=== PATIENT | female | born 1945 | race Hispanic/Latino ===

== ENCOUNTER 2018-11-15 21:16 | Inpatient (IN) | payer OTHER ==
[2018-11-15] MEDS ORDERED: ACETAMINOPHEN 500 MG TAB ONE (22:11)
[2018-11-15] MEDS ORDERED: ONDANSETRON 4 MG/2 ML VIAL ONE (22:11)
[2018-11-15 22:23] LABS: Absolute Lymphocytes (CBC) 0.7 K/uL (0.7-4.9); Basophils % 0.2 % (0-1.3); Hematocrit 40.7 % (36.0-45.0); Lymphocytes % 4.4 % (15.3-44.8); RBC Red Blood Cell Count 4.35 M/uL (3.86-4.86)
[2018-11-15 22:40] LABS: Albumin 3.3 g/dL (3.4-5.0); Bilirubin Direct 0.4 mg/dL (0-0.2); Potassium 3.8 mmol/L (3.5-5.1); Protein, Total 7.8 g/dL (6.4-8.2)
[2018-11-15 23:35] LABS: Blood Morphology Comment NOT SEEN (NOT SEEN); Platelet Estimate ADEQ
[2018-11-15] MEDS ORDERED: NA CHLORIDE 0.9% 1,000 ML ONE (23:46)
[2018-11-16 02:03] LABS: Potassium 3.9 mmol/L (3.5-5.1)
[2018-11-16] MEDS ORDERED: ONDANSETRON 4 MG/2 ML VIAL ONE (02:03)
[2018-11-16] MEDS ORDERED: ACETAMINOPHEN 500 MG TAB ONE (02:06)
[2018-11-16] MEDS ORDERED: ONDANSETRON 4 MG/2 ML VIAL IV PRN (04:20)
--- NOTE | 2018-11-16 04:21 | EDPHYS ---
Physician Documentation [facility] Name: Kim Bean Age: 73 yrs Sex: Female : 1945 Arrival Date: 11/15/2018 Time: 21:19 Bed 20 Private MD: ED Physician Josue Washington HPI: 11/16 02:41 This 73 yrs old Female presents to ER via Wheelchair with complaints of Nausea.tw4 02:41 The patient presents to the emergency department with nausea, that is mild, vomiting. tw4 Onset: The symptoms/episode began/occurred yesterday. 02:42 Possible causes: unknown. The symptoms are aggravated by food , The symptoms are tw4 alleviated by nothing. Associated signs and symptoms: The patient has no apparent associated signs or symptoms. Severity of symptoms: At their worst the symptoms were moderate in the emergency department the symptoms are unchanged. The patient has not experienced similar symptoms in the past. Historical: - Allergies: 11/15 21:38 PENICILLINS; jd3 - Home Meds: 21:38 Omeprazole Oral [Active]; jd3 - PMHx: 21:38 acid reflux; jd3 - PSHx: 21:38 Hysterectomy; Cholecystectomy; jd3 - Immunization history:: Adult Immunizations up to date. - Social history:: Smoking status: Patient/guardian denies using tobacco. - Ebola Screening: : Patient negative for fever greater than or equal to 101.5 degrees Fahrenheit, and additional compatible Ebola Virus Disease symptoms. ROS: 11/16 02:42 Eyes: Negative for injury, pain, redness, and discharge, ENT: Negative for injury, tw4 pain, and discharge, Neck: Negative for injury, pain, and swelling, Cardiovascular: Negative for chest pain, palpitations, and edema, Respiratory: Negative for shortness of breath, cough, wheezing, and pleuritic chest pain, MS/Extremity: Negative for injury and deformity, Skin: Negative for injury, rash, and discoloration, Neuro: Negative for headache, weakness, numbness, tingling, and seizure. Constitutional: Positive for fatigue, fever, malaise, poor PO intake. Abdomen/GI: Positive for nausea and vomiting, nausea, vomiting, Negative for abdominal pain. Exam: 02:42 Constitutional: This is a well developed, well nourished patient who is awake, alert, tw4 and in no acute distress. Head/Face: Normocephalic, atraumatic. Chest/axilla: Normal chest wall appearance and motion. Nontender with no deformity. No lesions are appreciated. Cardiovascular: Regular rate and rhythm with a normal S1 and S2. No gallops, murmurs, or rubs. Normal PMI, no JVD. No pulse deficits. Respiratory: Lungs have equal breath sounds bilaterally, clear to auscultation and percussion. No rales, rhonchi or wheezes noted. No increased work of breathing, no retractions or nasal flaring. Back: No spinal tenderness. No costovertebral tenderness. Full range of motion. Skin: Warm, dry with normal turgor. Normal color with no rashes, no lesions, and no evidence of cellulitis. MS/ Extremity: Pulses equal, no cyanosis. Neurovascular intact. Full, normal range of motion. Neuro: Awake and alert, GCS 15, oriented to person, place, time, and situation. Cranial nerves II-XII grossly intact. Motor strength 5/5 in all extremities. Sensory grossly intact. Cerebellar exam normal. Normal gait. Vital Signs: 11/15 21:38 BP 147 / 71; Pulse 103; Resp 20 S; Temp 101.9(O); Pulse Ox 99% on R/A; Weight 88 kg j (R); Height 5 ft. 2 in. (157.48 cm) (R); Pain 8/10; 22:35 BP 121 / 54; Pulse 97; Resp 18 S; Pulse Ox 95% on R/A; jd3 23:42 BP 115 / 56; Pulse 88; Resp 17 S; Pulse Ox 94% on R/A; jd3 11/16 00:05 Temp 99.6(O); jd3 00:21 BP 102 / 87; Pulse 89; Resp 17 S; Pulse Ox 99% on R/A; jd3 01:26 BP 131 / 60; Pulse 81; Resp 17 S; Pulse Ox 94% on R/A; jd3 02:11 BP 123 / 72; Pulse 82; Resp 17 S; Pulse Ox 93% on R/A; jd3 03:07 BP 137 / 96; Pulse 76; Resp 17 S; Pulse Ox 94% on R/A; jd3 04:04 BP 111 / 53; Pulse 77; Resp 18 S; Pulse Ox 95% on R/A; jd3 04:55 BP 101 / 82; Pulse 75; Resp 17 S; Pulse Ox 97% on R/A; jd3 05:01 Temp 98.2(O); jd3 11/15 21:38 Body Mass Index 35.48 (88.00 kg, 157.48 cm) jd3 MDM: 11/15 21:26 Patient medically screened. 4 11/16 05:01 Differential diagnosis: Nonspecific abd pain, gastritis, cholecystitis. Data reviewed: tw4 vital signs, nurses notes. Data reviewed: lab test result(s), CBC, white blood cell count, hemoglobin, hematocrit, platelets, electrolytes, sodium, potassium, chloride, serum bicarbonate, BUN, creatinine, serum glucose, hepatic panel. Data interpreted: Pulse oximetry: Interpretation: normal. Test interpretation: by ED physician or midlevel provider: labs. Counseling: I had a detailed discussion with the patient and/or guardian regarding: the historical points, exam findings, and any diagnostic results supporting the discharge/admit diagnosis, lab results, radiology results. Medication response: acetaminophen administration has normalized the patient's temperature. Response to treatment: and as a result, I will admit patient. Physician consultation: Mary Beth Lemon MD was contacted at 04:00, regarding admission, to the medical/surgical unit. patient's condition, need to evaluate the patient as soon as possible, and will see patient in inpatient room. 11/15 21:27 Order name: Basic Metabolic Panel; Complete Time: 23:22 11/15 23:23 Interpretation: Normal except: GFR 35; CRE 1.45; BUN 19; GLUC 177; CL 108. tw4 11/15 21:27 Order name: CBC with Diff; Complete Time: 00:41 4 11/15 23:24 Interpretation: Normal except: WBC 15.1; LANETTE% 86.7; LYM% 4.4. 4 11/15 21:27 Order name: Creatinine for Radiology; Complete Time: 23:22 tw4 11/15 23:23 Interpretation: Normal except: CRE 1.41; GFR 36. tw4 11/15 21:27 Order name: Hepatic Function; Complete Time: 23:22 tw 11/15 23:23 Interpretation: Normal except: BILID 0.4; ALB 3.3; GLOB 4.5; A/G 0.7. [facility] 11/15 21:27 Order name: Lipase; Complete Time: 23:22 [facility] 11/15 23:24 Interpretation: Within normal limits: LIP 107. [facility] 11/15 22:26 Order name: Manual Differential; Complete Time: 00:41 [facility] 11/16 00:41 Interpretation: Normal except: BANDS [F] 5; LYM 3. [facility] 11/15 23:32 Order name: Flu; Complete Time: 02:04 [facility] 11/16 01:09 Order name: BMP; Complete Time: 02:04 [facility] 11/16 04:22 Order name: Urine Microscopic Only [facility] 11/16 04:22 Order name: Lactate [facility] 11/16 04:22 Order name: Blood Culture Adult (2) [facility] 11/16 04:23 Order name: Urine Microscopic Only [facility] 11/16 04:29 Order name: CBC with Automated Diff [facility] 11/16 04:29 Order name: CBC with Automated Diff [facility] 11/15 21:27 Order name: IV Saline Lock; Complete Time: 22:12 [facility] 11/15 21:27 Order name: Labs collected and sent; Complete Time: 22:12 [facility] 11/16 01:09 Order name: CT Abd/Pelvis - IV Contrast Only [facility] 11/16 04:22 Order name: Urine Dipstick-Ancillary (obtain specimen); Complete Time: 05:35 [facility] 11/16 04:29 Order name: CONS Pharmacy Consult [facility] 11/16 04:29 Order name: NPO [facility] 11/16 04:29 Order name: Protime (+INR) [facility] 11/16 04:29 Order name: Protime (+INR) [facility] 11/16 05:37 Order name: Urine Dipstick--Ancillary (enter results) em1 11/16 05:48 Order name: Urine Dipstick-Ancillary EDKS Administered Medications: 11/15 22:17 Drug: Zofran 4 mg Route: IVP; Site: right antecubital; jd3 23:15 Follow up: Response: No adverse reaction jd3 22:17 Drug: Tylenol 1000 mg Route: PO; jd3 23:15 Follow up: Response: No adverse reaction; Temperature is decreased jd3 11/16 00:05 Drug: NS 0.9% 1000 ml Route: IV; Rate: 1 bolus; Site: right antecubital; jd3 01:05 Follow up: Response: No adverse reaction; IV Status: Completed infusion; IV Intake: jd3 1000ml 02:10 Drug: Tylenol 1000 mg Route: PO; jd3 03:10 Follow up: Response: No adverse reaction jd3 04:51 Drug: Motrin 600 mg Route: PO; jd3 05:45 Follow up: Response: No adverse reaction jd3 05:50 Not Given (Patient Refused): Zofran 4 mg IVP once; over 2 minutes jd3 Disposition: 11/16/18 04:20 Hospitalization ordered by Mary Beth Lemon for Observation. Preliminary diagnosis are Dehydration, Nausea and vomiting, Bandemia. - Bed requested for Telemetry/MedSurg (observation). - Status is Observation. jd3 - Condition is Fair. - Problem is new. - Symptoms are unchanged. UTI on Admission? No Signatures: Dispatcher [employer] Sosa Cox RN RN cg Davies, Jonathon, RN RN jd3 Wadley, Terrence, MD MD tw4 Corrections: (The following items were deleted from the chart) 05:16 04:20 Hospitalization Ordered by Mary Beth Lemon MD for Observation. Preliminary cg diagnosis is Dehydration; Nausea and vomiting; Bandemia. Bed requested for Telemetry/MedSurg (observation). Status is Observation. Condition is Fair. Problem is new. Symptoms are unchanged. UTI on Admission? No. tw4 05:51 05:16 11/16/2018 04:20 Hospitalization Ordered by Mary Beth Lemon MD for Observation. jd3 Preliminary diagnosis is Dehydration; Nausea and vomiting; Bandemia. Bed requested for Telemetry/MedSurg (observation). Status is Observation. Condition is Fair. Problem is new. Symptoms are unchanged. UTI on Admission? No. cg
--- NOTE | 2018-11-16 04:21 | ER ---
Nurse's Notes [facility] Name: Kim Bean Age: 73 yrs Sex: Female : 1945 Arrival Date: 11/15/2018 Time: 21:19 Bed 20 Private MD: Diagnosis: Dehydration;Nausea and vomiting;Bandemia Presentation: 11/15 21:33 Presenting complaint: Patient states: "I was at Dr. Shin's office today and I was told jdarius I had the flu with a fever and nausea. I was sent home with TheraFlu and a Z-pack. I have not been able to hold down any of the medication or medicine for the fever.". Transition of care: patient was not received from another setting of care. Onset of symptoms was November 15, 2018. Risk Assessment: Do you want to hurt yourself or someone else? Patient reports no desire to harm self or others. Initial Sepsis Screen: Does the patient meet any 2 criteria? Temp <36.0*C (96.8*F)) or > 38.3*C (100.9*F). HR > 90 bpm. Yes Does the patient have a suspected source of infection? No. Patient's initial sepsis screen is negative. Care prior to arrival: None. 21:33 Method Of Arrival: Wheelchair jd3 21:33 Acuity: KENNY 3 jd3 Historical: - Allergies: 21:38 PENICILLINS; jd3 - Home Meds: 21:38 Omeprazole Oral [Active]; jd3 - PMHx: 21:38 acid reflux; jd3 - PSHx: 21:38 Hysterectomy; Cholecystectomy; jd3 - Immunization history:: Adult Immunizations up to date. - Social history:: Smoking status: Patient/guardian denies using tobacco. - Ebola Screening: : Patient negative for fever greater than or equal to 101.5 degrees Fahrenheit, and additional compatible Ebola Virus Disease symptoms. Screenin:41 Abuse screen: Denies threats or abuse. Nutritional screening: No deficits noted. jd3 Tuberculosis screening: No symptoms or risk factors identified. Fall Risk Ambulatory Aid- None/Bed Rest/Nurse Assist (0 pts). Gait- Normal/Bed Rest/Wheelchair (0 pts) Mental Status- Oriented to own ability (0 pts). Total Howe Fall Scale indicates No Risk (0-24 pts). Assessment: 21:39 General: Appears in no apparent distress. uncomfortable, Behavior is calm, cooperative, jd3 appropriate for age. Pain: Complains of pain in head and abdomen Quality of pain is described as aching. Neuro: Level of Consciousness is awake, alert, obeys commands, Oriented to person, place, time, situation. Cardiovascular: Denies chest pain, Capillary refill < 3 seconds Patient's skin is warm and dry. Respiratory: Airway is patent Respiratory effort is even, unlabored, Respiratory pattern is regular, symmetrical, Denies cough, shortness of breath. GI: Abdomen is round non-distended, Reports lower abdominal pain, upper abdominal pain, nausea. : No signs and/or symptoms were reported regarding the genitourinary system. EENT: No signs and/or symptoms were reported regarding the EENT system. Derm: Skin is intact, Skin is dry, Skin is normal, Skin temperature is warm. Musculoskeletal: Circulation, motion, and sensation intact. Range of motion: intact in all extremities. 22:35 Reassessment: Patient appears in no apparent distress at this time. No changes from jd3 previously documented assessment. Patient and/or family updated on plan of care and expected duration. Pain level reassessed. Patient is alert, oriented x 3, equal unlabored respirations, skin warm/dry/pink. 23:42 Reassessment: Patient appears in no apparent distress at this time. No changes from jd3 previously documented assessment. Patient and/or family updated on plan of care and expected duration. Pain level reassessed. Patient is alert, oriented x 3, equal unlabored respirations, skin warm/dry/pink. 11/16 00:23 Reassessment: Patient appears in no apparent distress at this time. Patient and/or jd3 family updated on plan of care and expected duration. Pain level reassessed. Patient is alert, oriented x 3, equal unlabored respirations, skin warm/dry/pink. pt reported relief from the nausea, but continued headache. Patient states feeling better. 01:27 Reassessment: Patient appears in no apparent distress at this time. Patient and/or jd3 family updated on plan of care and expected duration. Pain level reassessed. Patient is alert, oriented x 3, equal unlabored respirations, skin warm/dry/pink. awaiting CT. 02:10 Reassessment: Patient appears in no apparent distress at this time. Patient and/or jd3 family updated on plan of care and expected duration. Pain level reassessed. Patient is alert, oriented x 3, equal unlabored respirations, skin warm/dry/pink. pt reported continuing headache. provider notified. new orders received. Zofran on hold, pt denies nausea at this time. 03:07 Reassessment: Patient appears in no apparent distress at this time. Patient and/or jd3 family updated on plan of care and expected duration. Pain level reassessed. Patient is alert, oriented x 3, equal unlabored respirations, skin warm/dry/pink. awaiting CT results. 04:03 Reassessment: Patient appears in no apparent distress at this time. Patient and/or jd3 family updated on plan of care and expected duration. Pain level reassessed. Patient is alert, oriented x 3, equal unlabored respirations, skin warm/dry/pink. provider at bedside. pt resting comfortably in bed. awaiting disposition. 05:11 Reassessment: Patient appears in no apparent distress at this time. Patient and/or jd3 family updated on plan of care and expected duration. Pain level reassessed. Patient is alert, oriented x 3, equal unlabored respirations, skin warm/dry/pink. awaiting room assignment. 05:43 Reassessment: Patient appears in no apparent distress at this time. Patient and/or jd3 family updated on plan of care and expected duration. Pain level reassessed. Patient is alert, oriented x 3, equal unlabored respirations, skin warm/dry/pink. report given Nicola DU. Vital Signs: 11/15 21:38 BP 147 / 71; Pulse 103; Resp 20 S; Temp 101.9(O); Pulse Ox 99% on R/A; Weight 88 kg [facility] (R); Height 5 ft. 2 in. (157.48 cm) (R); Pain 8/10; 22:35 BP 121 / 54; Pulse 97; Resp 18 S; Pulse Ox 95% on R/A; jd3 23:42 BP 115 / 56; Pulse 88; Resp 17 S; Pulse Ox 94% on R/A; d3 11/16 00:05 Temp 99.6(O); jd3 00:21 BP 102 / 87; Pulse 89; Resp 17 S; Pulse Ox 99% on R/A; jd3 01:26 BP 131 / 60; Pulse 81; Resp 17 S; Pulse Ox 94% on R/A; jd3 02:11 BP 123 / 72; Pulse 82; Resp 17 S; Pulse Ox 93% on R/A; jd3 03:07 BP 137 / 96; Pulse 76; Resp 17 S; Pulse Ox 94% on R/A; jd3 04:04 BP 111 / 53; Pulse 77; Resp 18 S; Pulse Ox 95% on R/A; jd3 04:55 BP 101 / 82; Pulse 75; Resp 17 S; Pulse Ox 97% on R/A; jd3 05:01 Temp 98.2(O); jd3 11/15 21:38 Body Mass Index 35.48 (88.00 kg, 157.48 cm) jd3 ED Course: 11/15 21:19 Patient arrived in ED. cf2 21:23 Josue Washington MD is Attending Physician. tw4 21:33 Santosh Peraza RN is Primary Nurse. jd3 21:37 Triage completed. jd3 21:39 Arm band placed on. jd3 21:41 Patient has correct armband on for positive identification. Bed in low position. Call j light in reach. Side rails up X2. Adult w/ patient. 22:12 Adult fever workup initiated per nursing protocol. jd3 11/16 02:24 CT Abd/Pelvis - IV Contrast Only In Process Unspecified. EDMS 02:37 CT completed. Patient tolerated procedure well. Patient moved to CT via wheelchair. Patient moved back from CT. 04:17 Mary Beth Lemon MD is Hospitalizing Provider. tw4 05:44 No provider procedures requiring assistance completed. Patient admitted, IV remains in jd3 place. Administered Medications: 11/15 22:17 Drug: Zofran 4 mg Route: IVP; Site: right antecubital; jd3 23:15 Follow up: Response: No adverse reaction jd3 22:17 Drug: Tylenol 1000 mg Route: PO; jd3 23:15 Follow up: Response: No adverse reaction; Temperature is decreased jd3 11/16 00:05 Drug: NS 0.9% 1000 ml Route: IV; Rate: 1 bolus; Site: right antecubital; jd3 01:05 Follow up: Response: No adverse reaction; IV Status: Completed infusion; IV Intake: jd3 1000ml 02:10 Drug: Tylenol 1000 mg Route: PO; jd3 03:10 Follow up: Response: No adverse reaction jd3 04:51 Drug: Motrin 600 mg Route: PO; jd3 05:45 Follow up: Response: No adverse reaction jd3 05:50 Not Given (Patient Refused): Zofran 4 mg IVP once; over 2 minutes jd3 Intake: 01:05 IV: 1000ml; Total: 1000ml. jd3 Outcome: 04:20 Decision to Hospitalize by Provider. tw4 05:44 Admitted to Med/surg accompanied by nurse, via wheelchair, room 208, with chart, Report jd3 called to Nicola DU 05:44 Condition: stable 05:44 Instructed on the need for admit, Demonstrated understanding of instructions. 05:51 Patient left the ED. jd3 Signatures: Dispatcher [employer] Colton Lugo Jonathon, RN RN jJosue Grier MD MD tw4 Sanya Max cf2 Corrections: (The following items were deleted from the chart) 00:23 09/10 21:39 Pain: Complains of pain in abdomen Quality of pain is described as aching, devan jdarius 11/16 02:12 02:11 BP 112 / 47; Pulse 82bpm; Resp 17bpm; Spontaneous; Pulse Ox 93% RA; jd3 jd3
[2018-11-16] MEDS ORDERED: IBUPROFEN 400 MG TAB ONE (04:48)
[2018-11-16] MEDS ORDERED: IBUPROFEN 200 MG TAB PO ONE (04:48)
[2018-11-16] MEDS: NA CHLORIDE 0.9% 1,000 ML IV SCH ×4 (05:00→17:03)
[2018-11-16 05:47] LABS: Urine Blood 2+ (NEG); Urine Glucose NEGATIVE (NEG); Urine Protein 2+ (NEG); Urine pH 5.5 (5.0-7.0)
[2018-11-16 05:50] LABS: Urine Bacteria >50 /HPF (<20); Urine Culture Reflex Order REFLEXED; Urine RBC <5 /HPF (NONE SEEN)
[2018-11-16] MEDS: PANTOPRAZOLE 40MG TABLET PO SCH (09:00)
[2018-11-16] MEDS: SUCRALFATE 1 GM TABLET PO SCH ×4 (09:00→21:19)
--- NOTE | 2018-11-16 09:01 | P.HP ---
Certification for Inpatient Patient admitted to: Observation With expected LOS: <2 Midnights Patient will require the following post-hospital care: None Practitioner: I am a practitioner with admitting privileges, knowledge of patient current condition, hospital course, and medical plan of care. Services: Services provided to patient in accordance with Admission requirements found in Title 42 Section 412.3 of the Code of Federal Regulations Patient History Date of Service: 11/16/18 Reason for admission: Fever, shakes, and chills /nausea /generalized weakness History of Present Illness: Patient is a 73yo female who has a history of scleroderma that was recently diagnosed a few weeks ago. Patient went to her primary care provider's office and was told that she had the flu. She states that they did not do a flu swab. She was sent home on therapy flu and also given a Z-Jj. She states that she has not been able to hold down any of her medicines. she has been having fever , shakes, and chills as well as persistent nausea. She does not have any diarrhea or vomiting at this time. She was looking very weak and we decided to admit her for observation. Allergies Penicillins Allergy (Mild, Verified 11/16/18 06:02) Hives; lips/eyes swell Home Medications: Omeprazole [Prilosec] 40 mg PO DAILY 11/16/18 Rosuvastatin [Crestor*] 1 tab PO BEDTIME 11/16/18 Sucralfate [Carafate -Tab] 1 gm PO QID 11/16/18 - Past Medical/Surgical History Diabetic: No -: reflux -: scleroderma -: hysterectomy -: cholecystectomy - Family History Father Family History: Reviewed- Non-Contributory - Social History Smoking Status: Never smoker Alcohol use: No CD- Drugs: No Review of Systems 10-point ROS is otherwise unremarkable Physical Examination - Vital Signs Temperature: 99.3 F Blood Pressure: 129/61 Pulse: 80 Respirations: 18 Pulse Ox (%): 92 - Physical Exam General: Alert, In no apparent distress, Oriented x3 HEENT: Atraumatic, PERRLA, Mucous membr. moist/pink, EOMI, Sclerae nonicteric Neck: Supple, 2+ carotid pulse no bruit, No LAD, Without JVD or thyroid abnormality Respiratory: Clear to auscultation bilaterally, Normal air movement Cardiovascular: Regular rate/rhythm, Normal S1 S2, No murmurs Gastrointestinal: Normal bowel sounds, Soft and benign, Non-distended, No tenderness Musculoskeletal: No clubbing, No swelling, No tenderness Integumentary: No rashes Neurological: Normal gait, Normal speech, Normal strength at 5/5 x4 extr, Normal tone, Sensation intact, Cranial nerves 3-12 intact, Normal affect Lymphatics: No axilla or inguinal lymphadenopathy - Studies Laboratory Data (last 24 hrs) 11/16/18 01:30: Sodium 142, Potassium 3.9, BUN 20 H, Creatinine 1.40 H, Glucose 159 H 11/15/18 22:08: Creatinine 1.41 H 11/15/18 22:08: WBC 15.1 H, Hgb 13.4, Hct 40.7, Plt Count 164 11/15/18 22:08: Sodium 141, Potassium 3.8, BUN 19 H, Creatinine 1.45 H, Glucose 177 H, Total Bilirubin 1.0, AST 18, ALT 18, Alkaline Phosphatase 92, Lipase 107 Microbiology Data (last 24 hrs): 11/15/18 23:59 Nasopharnyx Influenza Type A Antigen Screen - Final 11/15/18 23:59 Nasopharnyx Influenza Type B Antigen Screen - Final Assessment & Plan - Problems (Diagnosis) (1) Nausea Current Visit: Yes Status: Acute (2) Fever Current Visit: Yes Status: Acute (3) Scleroderma Current Visit: Yes Status: Acute (4) UTI (urinary tract infection) Current Visit: Yes Status: Acute (5) Leukocytosis Current Visit: Yes Status: Acute - Plan Plan: 1. IV hydration 2. IV antibiotics 3. IV steroids x2 doses 4. monitor labs closely 5. Urine culture results pending 6. antiemetics 7. GI and DVT prophylaxis Discharge Plan: Home Plan to discharge in: 48 Hours - Advance Directives Does patient have a Living Will: No Does patient have a Durable POA for Healthcare: No - Code Status/Comfort Care Code Status Assessed: Yes Code Status: Full Code Critical Care: No Time Spent Managing PTS Care (In Minutes): 45
[2018-11-16] MEDS: HYDROCORTISONE SUC 100 MG INJ IV SCH ×2 (09:35→21:19)
--- NOTE | 2018-11-16 09:51 | RAD REPORT ---
EXAM DESCRIPTION: CT - Abdomen Pelvis W Contrast - 11/16/2018 3:23 am CLINICAL HISTORY: The patient is 73 years old and is Female; ABD PAIN TECHNIQUE: Axial computed tomography images of the abdomen and pelvis with intravenous contrast. S agittal and coronal reformatted images were created and reviewed. This CT exam was performed using one or more of the following dose reduction techniques: automated exposure control, adjustment of t he mA and/or kV according to patient size, and/or use of iterative reconstruction technique. COMPARISON: No relevant prior studies available. FINDINGS: LUNG BASES: There is mild subsegmental atelectasis and/or scarring in bilateral lung bas es. ABDOMEN: LIVER: Unremarkable. No mass. GALLBLADDER AND BILE DUCTS: Surgical clips are present in the right upper quadrant, consistent w ith previous cholecystectomy. Moderate biliary dilatation is present. PANCREAS: The pancreas is mildly atrophic. SPLEEN: Unremarkable. ADRENALS: Unremarkable. No mass. KIDNEYS AND URETERS: Unremarkable. No solid mass. No hydronephrosis. STOMACH AND BOWEL: The stomach is decompressed. The small bowel is normal in caliber. Stool is p resent throughout the colon. A few scattered colonic diverticula are noted without surrounding inflam mation. PELVIS: APPENDIX: The appendix is normal in caliber without surrounding inflammation. BLADDER: Diffuse bladder wall thickening is present. The bladder is not well distended. REPRODUCTIVE: Unremarkable as visualized. ABDOMEN and PELVIS: INTRAPERITONEAL SPACE: Unremarkable. No free air. No significant fluid collection. BONES/JOINTS: No acute fracture. SOFT TISSUES: The soft tissues are normal. VASCULATURE: Atherosclerosis of the vasculature is present. The vessels are normal in caliber. No abdominal aortic aneurysm. LYMPH NODES: Unremarkable. No enlarged lymph nodes. IMPRESSION: Diffuse bladder wall thickening suggestive of cystitis. Electronically signed by: Camille Goldstein MD 11/16/2018 2:23 AM CDT Due to temporary technical issues with the PACS/Fluency reporting system, reports are being signed by the in house radiologist as a courtesy to ensure prompt reporting. The interpreting radiologist is f ully responsible for the content of the report.
[2018-11-16] MEDS ORDERED: Levofloxacin500mg IV 500 MG/100 ML BAG IV SCH (10:00)
[2018-11-16 10:13] VITALS: BMI 35.4
[2018-11-16] MEDS: MORPHINE 2 MG/ML SYR IV PRN ×3 (11:28→21:19)
[2018-11-16] MEDS: ACETAMINOPHEN 500 MG TAB PO PRN ×2 (14:25→23:47)
--- NOTE | 2018-11-16 18:21 | P.PN ---
Subjective Date of Service: 11/16/18 Chief Complaint: Fever, shakes, and chills /nausea /generalized weakness Patient is complaining of headache. She states the nausea has improved and she would like to eat. She had fever yesterday but not today. Review of Systems 10-point ROS is otherwise unremarkable Physical Examination - Vital Signs Temperature: 98.7 F Blood Pressure: 130/60 Pulse: 80 Respirations: 18 Pulse Ox (%): 94 - Physical Exam General: Alert, In no apparent distress, Oriented x3 HEENT: Normocephalic, PERRLA, Mucous membr. moist/pink Neck: Supple, JVD not distended, No Thyromegaly Respiratory: Clear to auscultation bilaterally, Normal air movement Cardiovascular: No edema, Regular rate/rhythm, Normal S1 S2 Gastrointestinal: Normal bowel sounds, Soft and benign, No ascites, No tenderness Musculoskeletal: No clubbing, No swelling, No erythema Integumentary: No rashes Neurological: Normal strength at 5/5 x4 extr, Cranial nerves 3-12 intact, Normal affect - Studies Laboratory Data (last 24 hrs) 11/16/18 01:30: Sodium 142, Potassium 3.9, BUN 20 H, Creatinine 1.40 H, Glucose 159 H 11/15/18 22:08: Creatinine 1.41 H 11/15/18 22:08: WBC 15.1 H, Hgb 13.4, Hct 40.7, Plt Count 164 11/15/18 22:08: Sodium 141, Potassium 3.8, BUN 19 H, Creatinine 1.45 H, Glucose 177 H, Total Bilirubin 1.0, AST 18, ALT 18, Alkaline Phosphatase 92, Lipase 107 Microbiology Data (last 24 hrs): 11/15/18 23:59 Nasopharnyx Influenza Type A Antigen Screen - Final 11/15/18 23:59 Nasopharnyx Influenza Type B Antigen Screen - Final Medications List Reviewed: Yes Assessment And Plan - Current Problems (Diagnosis) (1) Fever Current Visit: Yes Status: Acute (2) Leukocytosis Current Visit: Yes Status: Acute (3) Nausea Current Visit: Yes Status: Acute (4) Scleroderma Current Visit: Yes Status: Acute (5) UTI (urinary tract infection) Current Visit: Yes Status: Acute (6) Sepsis Current Visit: Yes Status: Acute (7) Chronic kidney disease, stage 3 Current Visit: Yes Status: Acute - Plan Start clear liquid diet. IV morphine p.r.n. for pain Zofran p.r.n. for nausea and vomiting Continue IV Levaquin and follow urine culture. Continue IV hydration and monitor renal function.
[2018-11-16] MEDS: ROSUVASTATIN 10 MG TAB PO SCH (21:19)
[2018-11-17] MEDS: NA CHLORIDE 0.9% 1,000 ML IV SCH ×3 (01:02→20:14)
[2018-11-17] MEDS: ACETAMINOPHEN 500 MG TAB PO PRN ×3 (05:26→20:04)
[2018-11-17 05:57] LABS: Absolute Lymphocytes (CBC) 1.7 K/uL (0.7-4.9); Basophils % 0.2 % (0-1.3); Hematocrit 34.7 % (36.0-45.0); Lymphocytes % 12.5 % (15.3-44.8); MPV 11.2 fL (7.6-11.3); RBC Red Blood Cell Count 3.72 M/uL (3.86-4.86)
[2018-11-17 05:59] LABS: Protime INR 1.19
[2018-11-17] MEDS: PANTOPRAZOLE 40MG TABLET PO SCH (09:11)
[2018-11-17] MEDS: Levofloxacin 250mg IV 250 MG/50 ML BAG IV SCH (09:11)
[2018-11-17] MEDS: SUCRALFATE 1 GM TABLET PO SCH ×4 (09:11→20:05)
[2018-11-17] MEDS: HYDROCORTISONE SUC 100 MG INJ IV SCH ×2 (09:11→20:05)
--- NOTE | 2018-11-17 17:04 | P.PN ---
Subjective Date of Service: 11/17/18 Chief Complaint: Fever, shakes, and chills /nausea /generalized weakness States she feels much better today. She states the nausea has improved. Fever noted today. Review of Systems 10-point ROS is otherwise unremarkable Physical Examination - Vital Signs Temperature: 101.2 F Blood Pressure: 133/61 Pulse: 75 Respirations: 18 Pulse Ox (%): 93 - Physical Exam General: Alert, In no apparent distress, Oriented x3 HEENT: Mucous membr. moist/pink Neck: Supple, JVD not distended Respiratory: Clear to auscultation bilaterally, Normal air movement Cardiovascular: No edema, Regular rate/rhythm, Normal S1 S2, No murmurs Gastrointestinal: Normal bowel sounds, Soft and benign Musculoskeletal: No swelling, No erythema Integumentary: No rashes Neurological: Normal strength at 5/5 x4 extr, Cranial nerves 3-12 intact Lymphatics: No axilla or inguinal lymphadenopathy - Studies Laboratory Data (last 24 hrs) 11/17/18 05:15: PT 13.9 H, INR 1.19 11/17/18 05:15: WBC 13.7 H, Hgb 11.7 L, Hct 34.7 L, Plt Count 156 Medications List Reviewed: Yes Assessment And Plan - Current Problems (Diagnosis) (1) Gram negative sepsis Current Visit: Yes Status: Acute (2) UTI (urinary tract infection) Current Visit: Yes Status: Acute (3) Fever Current Visit: Yes Status: Acute (4) Scleroderma Current Visit: Yes Status: Acute (5) Chronic kidney disease, stage 3 Current Visit: Yes Status: Acute - Plan Both urine culture and blood cultures are growing gram-negative rods Patient continued to have fever. Continue IV Levaquin. Will add IV Azactam due to ongoing fever. IV morphine p.r.n. for pain Zofran p.r.n. for nausea and vomiting Continue IV hydration and monitor renal function. Follow blood cultures and urine culture for organism identification and antibiotic sensitivity.
[2018-11-17] MEDS ORDERED: AZTREONAM 1 GM/VIAL IV SCH (18:00)
[2018-11-17] MEDS: AZTREONAM 1 GM/50 ML BAG IV SCH (18:01)
[2018-11-17] MEDS: ROSUVASTATIN 10 MG TAB PO SCH (20:05)
[2018-11-18] MEDS: AZTREONAM 1 GM/50 ML BAG IV SCH ×2 (00:53→08:31)
[2018-11-18] MEDS: NA CHLORIDE 0.9% 1,000 ML IV SCH ×3 (00:55→17:00)
[2018-11-18] MEDS: ACETAMINOPHEN 500 MG TAB PO PRN (03:15)
[2018-11-18 05:49] LABS: Potassium 3.8 mmol/L (3.5-5.1)
[2018-11-18 07:38] LABS: Basophils % 0.4 % (0-1.3); Hematocrit 33.2 % (36.0-45.0); Lymphocytes % 19.2 % (15.3-44.8); MPV 10.7 fL (7.6-11.3)
[2018-11-18] MEDS: TRAMADOL HCL 50 MG TAB PO PRN ×2 (08:30→22:28)
[2018-11-18] MEDS: SUCRALFATE 1 GM TABLET PO SCH ×4 (08:30→20:47)
[2018-11-18] MEDS: HYDROCORTISONE SUC 100 MG INJ IV SCH ×2 (08:31→20:47)
[2018-11-18] MEDS: PANTOPRAZOLE 40MG TABLET PO SCH (08:31)
[2018-11-18] MEDS: Levofloxacin 250mg IV 250 MG/50 ML BAG IV SCH (08:31)
[2018-11-18] MEDS: Levofloxacin500mg IV 500 MG/100 ML BAG IV SCH (09:35)
--- NOTE | 2018-11-18 15:43 | P.PN ---
Subjective Date of Service: 11/18/18 Chief Complaint: Fever, shakes, and chills /nausea /generalized weakness Patient complaining of intermittent headache. No fever since yesterday. Leukocytosis has resolved. Review of Systems 10-point ROS is otherwise unremarkable Physical Examination - Vital Signs Temperature: 97.3 F Blood Pressure: 173/74 Pulse: 86 Respirations: 16 Pulse Ox (%): 95 - Physical Exam General: Alert, In no apparent distress, Oriented x3 HEENT: Mucous membr. moist/pink Neck: Supple Respiratory: Clear to auscultation bilaterally, Normal air movement Cardiovascular: No edema, Regular rate/rhythm, Normal S1 S2 Gastrointestinal: Normal bowel sounds, Soft and benign, No tenderness Musculoskeletal: No swelling Integumentary: No rashes - Studies Microbiology Data (last 24 hrs): 11/16/18 05:33 Clean Catch Urine [place] Count - Final >100,000 CFU/ML. 11/16/18 05:33 Clean Catch Urine - Final Escherichia Coli 11/16/18 04:52 Blood - Blood Aerobic Blood Culture - Final Escherichia Coli 11/16/18 04:52 Blood - Blood Gram Stain - Final 11/16/18 04:52 Blood - Blood Anaerobic Blood Culture - Final Escherichia Coli 11/16/18 04:52 Blood - Blood Gram Stain - Final 11/16/18 05:10 Blood - Blood Aerobic Blood Culture - Final Escherichia Coli 11/16/18 05:10 Blood - Blood Gram Stain - Final 11/16/18 05:10 Blood - Blood Anaerobic Blood Culture - Final Escherichia Coli 11/16/18 05:10 Blood - Blood Gram Stain - Final Medications List Reviewed: Yes Assessment And Plan - Current Problems (Diagnosis) (1) Gram negative sepsis Current Visit: Yes Status: Acute (2) UTI (urinary tract infection) Current Visit: Yes Status: Acute (3) Fever Current Visit: Yes Status: Acute (4) Scleroderma Current Visit: Yes Status: Acute (5) Chronic kidney disease, stage 3 Current Visit: Yes Status: Acute - Plan Both urine culture and blood cultures are growing pansensitive E. coli Continue IV Levaquin. Discontinue his Azactam. Tramadol p.r.n. for headache. Zofran p.r.n. for nausea and vomiting Continue IV hydration. Repeat blood culture to the document bacteremia clearance. Planning 3 days of IV antibiotics and transition to oral Levaquin.
[2018-11-18] MEDS: ROSUVASTATIN 10 MG TAB PO SCH (20:47)
[2018-11-19] MEDS: NA CHLORIDE 0.9% 1,000 ML IV SCH ×4 (01:38→22:46)
[2018-11-19] MEDS: TRAMADOL HCL 50 MG TAB PO PRN (06:36)
[2018-11-19] MEDS: Levofloxacin500mg IV 500 MG/100 ML BAG IV SCH (08:44)
[2018-11-19] MEDS: SUCRALFATE 1 GM TABLET PO SCH ×4 (08:45→20:13)
[2018-11-19] MEDS: PANTOPRAZOLE 40MG TABLET PO SCH (08:45)
[2018-11-19] MEDS: ACETAMINOPHEN 500 MG TAB PO PRN (08:47)
[2018-11-19] MEDS: HYDROCORTISONE SUC 100 MG INJ IV SCH ×2 (08:51→20:14)
[2018-11-19] MEDS: WATER FOR INJ,STERILE 10 ML IV PRN ×2 (08:57→20:15)
[2018-11-19] MEDS: MORPHINE 2 MG/ML SYR IV PRN (10:50)
--- NOTE | 2018-11-19 12:43 | P.PN ---
Subjective Date of Service: 11/19/18 Chief Complaint: Fever, shakes, and chills /nausea /generalized weakness She is still complaining of intermittent headache. No fever. Leukocytosis has resolved. Physical Examination - Vital Signs Temperature: 97.9 F Blood Pressure: 148/66 Pulse: 74 Respirations: 16 Pulse Ox (%): 96 - Physical Exam General: In no apparent distress, Oriented x3 HEENT: Mucous membr. moist/pink Neck: Supple, JVD not distended Respiratory: Clear to auscultation bilaterally, Normal air movement Cardiovascular: No edema, Regular rate/rhythm, Normal S1 S2 Gastrointestinal: Normal bowel sounds, Soft and benign, Other (Right flank tenderness) Musculoskeletal: No swelling, No tenderness Integumentary: No rashes Neurological: Normal strength at 5/5 x4 extr - Studies Medications List Reviewed: Yes Assessment And Plan - Current Problems (Diagnosis) (1) E. coli sepsis Current Visit: Yes Status: Acute (2) UTI (urinary tract infection) Current Visit: Yes Status: Acute (3) Scleroderma Current Visit: Yes Status: Acute (4) Chronic kidney disease, stage 3 Current Visit: Yes Status: Acute - Plan Both urine culture and blood cultures grew pansensitive E. coli. Repeat blood culture: No growth to date Continue IV Levaquin. Head CT requested due to persistent headache. Renal ultrasound due to right flank pain to make sure no renal abscess has developed. Tramadol p.r.n. for headache. Zofran p.r.n. for nausea and vomiting Continue IV hydration.
[2018-11-19 14:16] LABS: Basophils % 0.2 % (0-1.3); Hematocrit 34.4 % (36.0-45.0); Lymphocytes % 12.1 % (15.3-44.8); MPV 10.5 fL (7.6-11.3); RBC Red Blood Cell Count 3.72 M/uL (3.86-4.86)
--- NOTE | 2018-11-19 14:56 | RAD REPORT ---
EXAM DESCRIPTION: CT - Head Brain Wo Cont - 11/19/2018 2:31 pm CLINICAL HISTORY: Headache COMPARISON: 2016 TECHNIQUE: Computed axial tomography of the head was obtained. IV contrast was not requested. All CT scans are performed using dose optimization technique as appropriate and may include automated exposure control or mA/KV adjustment according to patient size. FINDINGS: An intracranial bleed is not seen . The ventricles are normal in caliber. No extra-axial fluid collection is noted. Fluid within the sinuses/ mastoids is not seen. IMPRESSION: No acute intracranial abnormality is seen. If patient's symptoms persist MRI of the bra in would be recommended.
[2018-11-19] MEDS: ROSUVASTATIN 10 MG TAB PO SCH (20:13)
--- NOTE | 2018-11-19 20:57 | RAD REPORT ---
EXAM DESCRIPTION: US - Renal Ultrasound-Limited - 11/19/2018 8:32 pm CLINICAL HISTORY: Right renal pain COMPARISON: 2017 ultrasound FINDINGS: The right kidney measures 11 cm with a normal echotexture. No hydronephrosis. . No gross abnormality of bladder is seen IMPRESSION: Unremarkable right renal ultrasound. An abscess is not seen.
[2018-11-20 05:10] LABS: Potassium 3.2 mmol/L (3.5-5.1)
[2018-11-20] MEDS ORDERED: POTASSIUM CL SA 10 MEQ TAB PO ONE (09:00)
[2018-11-20] MEDS: NA CHLORIDE 0.9% 1,000 ML IV SCH (09:00)
[2018-11-20] MEDS: PANTOPRAZOLE 40MG TABLET PO SCH (09:06)
[2018-11-20] MEDS: SUCRALFATE 1 GM TABLET PO SCH ×2 (09:06→12:54)
[2018-11-20] MEDS: Levofloxacin500mg IV 500 MG/100 ML BAG IV SCH (09:06)
[2018-11-20] MEDS: HYDROCORTISONE SUC 100 MG INJ IV SCH (09:07)
[2018-11-20 10:24] VITALS: O2SAT 94
--- NOTE | 2018-11-20 10:43 | P.PN ---
Subjective Date of Service: 11/20/18 Primary Care Provider: Dr. Shin Chief Complaint: Fever, shakes, and chills /nausea /generalized weakness Subjective: Tolerating diet, Ambulating, Improving, Other (CT head negative, Renal US unremarkable. Pt encouraged to ambulate in hallways with assist and probable d/c home if she tolerates lunch) Physical Examination - Vital Signs Temperature: 97.1 F Blood Pressure: 168/75 Pulse: 58 Respirations: 17 Pulse Ox (%): 94 - Physical Exam General: Alert, In no apparent distress, Oriented x3, Cooperative HEENT: Atraumatic, Normocephalic, PERRLA, Mucous membr. moist/pink Neck: Supple, 2+ carotid pulse no bruit, JVD not distended Respiratory: Clear to auscultation bilaterally, Normal air movement Cardiovascular: No edema, Normal pulses, Regular rate/rhythm Capillary refill: <2 Seconds Gastrointestinal: Normal bowel sounds Musculoskeletal: No clubbing, No swelling Integumentary: No rashes, No breakdown Neurological: Normal speech, Normal tone, Sensation intact Lymphatics: No axilla or inguinal lymphadenopathy Urinary: Other (no further c/o flank pain) External genitalia: Deferred Rectal: Deferred - Studies repeat blood cultures negative Medications List Reviewed: Yes Assessment & Plan - Problems (Diagnosis) (1) Chronic kidney disease, stage 3 Current Visit: Yes Status: Acute Plan: Continue encouraging po fluids (2) E. coli sepsis Onset Date: ~11/16/18 Current Visit: Yes Status: Acute Plan: Transition IV abx therapy to PO. Pt understands plan of care (3) Fever Current Visit: Yes Status: Acute Plan: Continue po abx (4) Sepsis Current Visit: No Status: Acute Discharge Plan: Home - Code Status/Comfort Care Code Status Assessed: Yes Code Status: Full Code
[2018-11-20 12:17] VITALS: BP 160/79; TEMP 97.2
[2018-11-20] MEDS: TRAMADOL HCL 50 MG TAB PO PRN (12:25)
--- NOTE | 2018-11-20 13:29 | P.DS ---
Admission Date: 11/17/18 Discharge Date: 11/20/18 Primary Care Provider: Dr. Shin Disposition: ROUTINE DISCHARGE Comment: will transition to po antibiotics Discharge Condition: GOOD Reason for Admission: Fever, shakes, and chills /nausea /generalized weakness - Problems (1) Chronic kidney disease, stage 3 Current Visit: Yes Status: Acute (2) E. coli sepsis Onset Date: ~11/16/18 Current Visit: Yes Status: Acute (3) Fever Current Visit: Yes Status: Acute (4) Sepsis Current Visit: No Status: Acute Brief History of Present Illness: Admitted with weakness, headache, found to be uroseptic. IVF, IVabx. Pt now tolerating ambulation, po, decreased pain and can be safely discharged home Vital Signs/Physical Exam: Temp Pulse Resp BP Pulse Ox 97.2 F 56 19 160/79 H 98 11/20/18 12:00 11/20/18 12:00 11/20/18 12:25 11/20/18 12:00 11/20/18 12:25 General: Alert, In no apparent distress, Oriented x3 HEENT: Atraumatic, Normocephalic, PERRLA Neck: Supple, 2+ carotid pulse no bruit Respiratory: Clear to auscultation bilaterally, Normal air movement Cardiovascular: No edema, Normal pulses, Regular rate/rhythm Capillary refill: <2 Seconds Gastrointestinal: Normal bowel sounds, Soft and benign Musculoskeletal: No clubbing, No swelling Integumentary: No rashes, No breakdown Neurological: Normal gait, Normal speech, Normal strength at 5/5 x4 extr Lymphatics: No axilla or inguinal lymphadenopathy External genitalia: Deferred Rectal: Deferred Laboratory Data at Discharge: WBC 8.6 K/uL (4.3-10.9) D 11/19/18 14:00 Hgb 11.7 g/dL (12.0-15.0) L 11/19/18 14:00 Hct 34.4 % (36.0-45.0) L 11/19/18 14:00 Plt Count 189 K/uL (152-406) 11/19/18 14:00 PT 13.9 SECONDS (9.5-12.5) H 11/17/18 05:15 INR 1.19 11/17/18 05:15 Sodium 146 mmol/L (136-145) H 11/20/18 04:33 Potassium 3.2 mmol/L (3.5-5.1) L 11/20/18 04:33 BUN 10 mg/dL (7-18) 11/20/18 04:33 Creatinine 0.96 mg/dL (0.55-1.3) 11/20/18 04:33 Glucose 123 mg/dL (74-106) H 11/20/18 04:33 Total Bilirubin 1.0 mg/dL (0.2-1.0) 11/15/18 22:08 AST 18 U/L (15-37) 11/15/18 22:08 ALT 18 U/L (12-78) 11/15/18 22:08 Alkaline Phosphatase 92 U/L (45-117) 11/15/18 22:08 Lipase 107 U/L (73-393) 11/15/18 22:08 Home Medications: Rosuvastatin [Crestor*] 1 tab PO BEDTIME 11/16/18 Sucralfate [Carafate*] 1 gm PO QID 11/16/18 Levofloxacin [Levaquin] 500 mg PO DAILY 10 Days #10 tablet 11/20/18 Omeprazole [Prilosec] 40 mg PO DAILY #20 capsule. 11/20/18 Promethazine HCl 25 mg PO Q6H #20 tablet 11/20/18 traMADol HCL [Ultram*] 50 mg PO Q6H PRN #12 tab 11/20/18 New Medications: Levofloxacin [Levaquin] 500 mg PO DAILY 10 Days #10 tablet Omeprazole [Prilosec] 40 mg PO DAILY #20 capsule. Promethazine HCl 25 mg PO Q6H #20 tablet traMADol HCL [Ultram*] 50 mg PO Q6H PRN #12 tab PRN Reason: Pain Scale 5-7 (Moderate)
== END 2018-11-20 15:47 | disposition home or self-care (01) | DRG 872 ==
LOC: ER 21:16 → ERHOLD 11-16 04:47 → 2ND 11-16 05:46 → OBSVTOIN 11-17 10:41
PROVIDERS: ADMIT Hospitalist; ATTEND Hospitalist
DX: A41.51 Sepsis due to Escherichia coli [E. coli] (principal); N39.0 Urinary tract infection, site not specified; M34.9 Systemic sclerosis, unspecified; N18.3 Chronic kidney disease, stage 3 (moderate); Z88.0 Allergy status to penicillin
CPT/HCPCS: 36415; 70450; 74177; 76775; 80048; 80076; 81003; 81015; 83605; 83690; 84132; 85025; 85610; 87040; 87077; 87086; 87088; 87186; 87205; 87804; 96361; 96374; 99285; G0378; J1720; J2270; J2405; J7030; Q9967

== ENCOUNTER 2019-10-26 06:39 | Emergency (ER) | payer OTHER ==
[2019-10-26] MEDS ORDERED: TETRACAINE HCL 0.5% 4ML OPTH ONE (07:08)
[2019-10-26] MEDS ORDERED: FLUORESCEIN SODIUM 1 MG/WRAP ONE (07:08)
--- NOTE | 2019-10-26 07:43 | ER ---
Nurse's Notes [facility] Name: Kim Bean Age: 73 yrs Sex: Female : 1945 Arrival Date: 10/26/2019 Time: 06:42 Bed 20 Private MD: Diagnosis: Episcleritis Presentation: 10/25 06:50 Chief complaint: Patient states: PER PT RIGHT EYE PAIN SINCE WED. TEARING. DENIES HTN. mt2 DENIES FEVER OR CHILLS. Coronavirus screen: At this time, the client does not indicate any symptoms associated with coronavirus-19. Ebola Screen: No symptoms or risks identified at this time. Mechanism of Injury: No Mechanism of Injury. The patient denies any loss of vision. Initial Sepsis Screen: Does the patient meet any 2 criteria? No. Patient's initial sepsis screen is negative. Does the patient have a suspected source of infection? No. Patient's initial sepsis screen is negative. Risk Assessment: Do you want to hurt yourself or someone else?. Risk Assessment: Do you want to hurt yourself or someone else? Patient reports no desire to harm self or others. Onset of symptoms was October 25, 2019. 06:50 Method Of Arrival: Ambulatory mt2 06:50 Acuity: KENNY 4 mt2 Triage Assessment: 06:54 General: Appears uncomfortable, Behavior is cooperative. Pain: Complains of pain in mt2 right eye Pain currently is 10 out of 10 on a pain scale. EENT: Reports pain in forehead and right eye. Neuro: Reports headache in right frontal area. Historical: - Allergies: 06:53 PENICILLINS; mt2 - Home Meds: 06:53 Fosamax Plus D 70-2,800 mg-unit oral tab 1 tab once wkly for Post-Menopausal mt2 Osteoporosis [Active]; - PMHx: 06:53 Osteoporosis; Arthritis; acid reflux; mt2 - Immunization history:: Adult Immunizations up to date. - Social history:: Smoking status: Patient denies any tobacco usage or history of. Patient/guardian denies using street drugs. Screenin:54 Abuse screen: Denies threats or abuse. Nutritional screening: No deficits noted. mt2 Tuberculosis screening: No symptoms or risk factors identified. Fall Risk None identified. Assessment: 06:55 EENT: Eyes are tearing on iris of right eye Sclera/Cornea are reddened in outer aspect mt2 of conjuctiva of right eye, iris of right eye and inner aspect of conjuctiva of right eye. Vital Signs: 06:50 BP 158 / 79; Pulse 85; Resp 16; Temp 98.2; Pulse Ox 97% ; Weight 88.9 kg; Pain 10/10; mt2 08:43 BP 154 / 75; Pulse 82; Resp 18; Pulse Ox 98% on R/A; jr10 Visual Acuity: 07:04 Left Eye Visual acuity 20/30, ; Right Eye Visual acuity 20/40, ; Both Eyes Visual mt2 acuity 20/30; With Lenses; ED Course: 06:42 Patient arrived in ED. cl3 06:43 [facility] Leblanc [facility]C [facility] kb 06:43 Zain Tatum MD is Attending Physician. kb 06:44 Eunice Steve RN is Primary Nurse. mt2 06:52 Triage completed. mt2 06:54 Arm band placed on right wrist. mt2 06:54 Bed in low position. Call light in reach. Side rails up X 1. mt2 06:54 Patient did not have IV access during this emergency room visit. mt2 08:43 No provider procedures requiring assistance completed. jr10 Administered Medications: 07:05 Drug: Tetracaine Drops 0.5 % 1 drops Route: Ophthalmic; Site: right eye; mt2 08:44 Follow up: Response: No adverse reaction jr10 08:16 CANCELLED (d/c): Tobramycin Ointment (0.3 %) 0.5 inches Ophthalmic once jr10 08:38 Not Given (Patient Refused): [place] 5 mg-325 mg 1 tabs PO once; RASS on ADMIN: Combtv4, jr10 Very Agttd3, Agttd2, Rstlss1, AlertClm0, Drwsy-1, Lt Sdtn-2, Mod Sdtn-3, Dp Sdtn-4, UnArsble-5 Outcome: 07:42 Discharge ordered by . kb 08:43 Discharged to home ambulatory. jr10 08:43 Condition: stable 08:43 Discharge instructions given to patient, Instructed on discharge instructions, follow up and referral plans. Demonstrated understanding of instructions, follow-up care. 08:44 Patient left the ED. jr10 Signatures: Stacy Leblanc, [employer] M[employer] MAKERRoniC [employer]-Ramón James cl3 Eunice Steve RN RN mt2 Shilpa Finch RN RN jr10
--- NOTE | 2019-10-26 07:43 | EDPHYS ---
Physician Documentation [facility] Name: Kim Bean Age: 73 yrs Sex: Female : 1945 Arrival Date: 10/26/2019 Time: 06:42 Bed 20 Private MD: ED Physician Zain Tatum HPI: 10/25 06:51 This 73 yrs old Female presents to ER via Unassigned with complaints of Eye kb Pain. 06:51 The patient is experiencing pain, redness, tearing, The patient sustained None. to the kb right eye, caused by an unknown mechanism. Onset: The symptoms/episode began/occurred yesterday. Duration: the symptoms are continuous. Aggravated by nothing. Alleviated by nothing. Associated signs and symptoms: Pertinent positives: headache, Pertinent negatives: chills, dizziness, ear ache, fever, runny nose. Severity of symptoms: At their worst the symptoms were moderate in the emergency department the symptoms are unchanged. The patient has not experienced similar symptoms in the past. The patient has not recently seen a physician. Pt reports eye redness, watering and pain that started yesterday. Denies vision changes. States she has developed a headache as well. Historical: - Allergies: 06:53 PENICILLINS; mt2 - Home Meds: 06:53 Fosamax Plus D 70-2,800 mg-unit oral tab 1 tab once wkly for Post-Menopausal mt2 Osteoporosis [Active]; - PMHx: 06:53 Osteoporosis; Arthritis; acid reflux; mt2 - Immunization history:: Adult Immunizations up to date. - Social history:: Smoking status: Patient denies any tobacco usage or history of. Patient/guardian denies using street drugs. ROS: 06:51 Constitutional: Negative for fever, chills, and weight loss, Cardiovascular: Negative kb for chest pain, palpitations, and edema, Respiratory: Negative for shortness of breath, cough, wheezing, and pleuritic chest pain, Abdomen/GI: Negative for abdominal pain, nausea, vomiting, diarrhea, and constipation, MS/Extremity: Negative for injury and deformity, Skin: Negative for injury, rash, and discoloration, Neuro: Negative for headache, weakness, numbness, tingling, and seizure. 06:51 Eyes: Positive for pain, redness, tearing. Exam: 06:51 Constitutional: This is a well developed, well nourished patient who is awake, alert, kb and in no acute distress. Head/Face: Normocephalic, atraumatic. Chest/axilla: Normal chest wall appearance and motion. Nontender with no deformity. No lesions are appreciated. Cardiovascular: Regular rate and rhythm with a normal S1 and S2. No gallops, murmurs, or rubs. Normal PMI, no JVD. No pulse deficits. Respiratory: Lungs have equal breath sounds bilaterally, clear to auscultation and percussion. No rales, rhonchi or wheezes noted. No increased work of breathing, no retractions or nasal flaring. Abdomen/GI: Soft, non-tender, with normal bowel sounds. No distension or tympany. No guarding or rebound. No evidence of tenderness throughout. Skin: Warm, dry with normal turgor. Normal color with no rashes, no lesions, and no evidence of cellulitis. MS/ Extremity: Pulses equal, no cyanosis. Neurovascular intact. Full, normal range of motion. Neuro: Awake and alert, GCS 15, oriented to person, place, time, and situation. Cranial nerves II-XII grossly intact. Motor strength 5/5 in all extremities. Sensory grossly intact. Cerebellar exam normal. Normal gait. 06:51 Eyes: Periorbital structures: appear normal, Pupils: equal, round, and reactive to light and accomodation, Extraocular movements: no acute changes, Conjunctiva: injected, in the right eye. 07:55 Eyes: Corneas: are normal, abrasion, is not appreciated, foreign body, is not kb appreciated, a fluorescein strip employed to appreciate the findings. 07:55 Visual Acuity: I have reviewed the nursing documentation. Vital Signs: 06:50 BP 158 / 79; Pulse 85; Resp 16; Temp 98.2; Pulse Ox 97% ; Weight 88.9 kg; Pain 10/10; mt2 08:43 BP 154 / 75; Pulse 82; Resp 18; Pulse Ox 98% on R/A; jr10 Visual Acuity: 07:04 Left Eye Visual acuity 20/30, ; Right Eye Visual acuity 20/40, ; Both Eyes Visual mt2 acuity 20/30; With Lenses; Procedures: 07:55 Eye Exam: Tetracaine. kb 07:55 Eye Exam: Fluorescein. kb MDM: 06:47 Patient medically screened. kb 06:53 Data reviewed: vital signs, nurses notes. Data interpreted: Pulse oximetry: on room air kb is 97 %. Interpretation: normal. 07:24 ED course: Discussed with ERP. Awaiting his evaluation. kb 07:46 Counseling: I had a detailed discussion with the patient and/or guardian regarding: the kb historical points, exam findings, and any diagnostic results supporting the discharge/admit diagnosis, the need for outpatient follow up, an opthalmologist, to return to the emergency department if symptoms worsen or persist or if there are any questions or concerns that arise at home. 07:53 Physician consultation: Lalo Norris MD was contacted at 07:48, regarding consult, patient's condition, recommended use of 2.5% phenylephrine ophth drops and reexamine in 10 minutes for resolution to rule in/out episcleritis. 07:55 ED course: Awaiting phenylephrine drops from pharmacy. kb 07:56 ED course: Pt will follow up with her eye doctor in [place] today. kb 08:21 ED course: phenylephrine 2.5% drop instilled in right eye. Will re-examine in [address] Norris's recommendation. 08:35 ED course: Redness markedly decreased. Pt upset that she is still having irritation in kb her eye. [place] ordered for pain, but pt refused. States "I don't want a pain pill, I want you to take the pain away from my eye." Educated on OTC symptom management and need for follow up with eye doctor. . 10/25 06:55 Order name: Visual Acuity; Complete Time: 07:04 10/25 06:55 Order name: Eye Tray; Complete Time: 07:10 kb 10/25 06:55 Order name: Fluoresene Opth strip; Complete Time: 07:05 kb Administered Medications: 07:05 Drug: Tetracaine Drops 0.5 % 1 drops Route: Ophthalmic; Site: right eye; mt2 08:44 Follow up: Response: No adverse reaction jr10 08:16 CANCELLED (d/c): Tobramycin Ointment (0.3 %) 0.5 inches Ophthalmic once jr10 08:38 Not Given (Patient Refused): [place] 5 mg-325 mg 1 tabs PO once; RASS on ADMIN: Combtv4, jr10 Very Agttd3, Agttd2, Rstlss1, AlertClm0, Drwsy-1, Lt Sdtn-2, Mod Sdtn-3, Dp Sdtn-4, UnArsble-5 Disposition: 10/26 05:57 Co-signature as Attending Physician, Zain Tatum MD. mh7 Disposition: 10/26/19 07:42 Discharged to Home. Impression: Episcleritis. - Condition is Stable. - Discharge Instructions: Scleritis and Episcleritis. - Medication Reconciliation Form, Thank You Letter, Antibiotic Education, Prescription Opioid Use form. - Follow up: Emergency Department; When: As needed; Reason: Worsening of condition. Follow up: Private Physician; When: 2 - 3 days; Reason: Recheck today's complaints, Continuance of care, Re-evaluation by your physician. Signatures: Stacy Leblanc, PROPERTY SPECIALIST-C PROPERTY SPECIALIST-CkZain Garcia MD MD 7 Eunice Steve RN RN mt2 Shilpa Finch RN RN jr10 Corrections: (The following items were deleted from the chart) 10/25 07:55 07:53 Physician consultation: Lalo Norris MD was contacted at 07:48, regarding kb consult, patient's condition, recommended use of 2.5% phenylephrine ophth drops and reexamine in 10 minutes for resolution to rule in/out episcleritis, kb 08:16 07:46 Tobramycin Ointment (0.3 %) 0.5 inches Ophthalmic once ordered. kb jr10 08:26 07:42 10/26/2019 07:42 Discharged to Home. Impression: Conjunctivitis. Condition is kb Stable. Forms are Medication Reconciliation Form, Thank You Letter, Antibiotic Education, Prescription Opioid Use. Follow up: Emergency Department; When: As needed; Reason: Worsening of condition. Follow up: Private Physician; When: 2 - 3 days; Reason: Recheck today's complaints, Continuance of care, Re-evaluation by your physician. kb 08:44 08:26 10/26/2019 07:42 Discharged to Home. Impression: Episcleritis. Condition is jr10 Stable. Discharge Instructions: Bacterial Conjunctivitis, Mamt-eb-Ascj. Forms are Medication Reconciliation Form, Thank You Letter, Antibiotic Education, Prescription Opioid Use. Follow up: Emergency Department; When: As needed; Reason: Worsening of condition. Follow up: Private Physician; When: 2 - 3 days; Reason: Recheck today's complaints, Continuance of care, Re-evaluation by your physician. kb
[2019-10-26] MEDS ORDERED: TOBRAMYCIN SULF 0.3% OPTH OINT ONE (07:56)
[2019-10-26] MEDS ORDERED: PHENYLEPHRINE 2.5% OPTH 2 ML OPTH ONE (08:00)
[2019-10-26] MEDS ORDERED: HYDROCODONE/APAP 5/325 MG TAB ONE (08:42)
[2019-10-26 08:50] VITALS: TEMP 98.2
[2019-10-26 08:51] VITALS: BP 154/75; O2SAT 98
== END 2019-10-26 08:44 | disposition home or self-care (01) ==
LOC: ER 06:39
DX: H15.101 Unspecified episcleritis, right eye (principal); Z88.0 Allergy status to penicillin
CPT/HCPCS: 99283

== ENCOUNTER 2020-09-26 15:50 | Observation (INO) | payer OTHER ==
--- OUTSIDE RECORDS SUMMARY | 2020-09-26 16:34 | XMS REPORT | Continuity of Care Document ---
:1945 Author Organization [facility] t Address [address] [place] [address] Care Team Providers Name Role Phone Unavailable Unavailable Unavailable Problems This patient has no known problems. Allergies, Adverse Reactions, Alerts This patient has no known allergies or adverse reactions. Medications This patient has no known medications. Procedures This patient has no known procedures. Encounters Start End Encounter Admission Attending Care Care Encounter Source Date/Time Date/Time Type Type Clinicians Facility Department ID 2020-09-23 2020-09-23 Outpatient [facility] [id number] [facility] 00[facility]00 [facility] 2020-09-19 2020-09-19 Outpatient [facility] [id number] [facility] 00[facility]00[facility] 2020-09-18 2020-09-18 Outpatient [facility] [id number] [facility] 2020-08-23 2020-08-23 Outpatient [facility] [id number] [facility] 2020-08-14 2020-08-14 Outpatient [facility] [id number] [facility] 2020-07-16 2020-07-16 Outpatient [facility] [id number] [facility] 2020-07-16 2020-07-16 Outpatient [facility] [id number] [facility] 2020-04-17 2020-04-17 Outpatient [facility] [id number] [facility] 2020-01-11 2020-01-11 Outpatient [facility] [id number] [facility] Results This patient has no known results.
[2020-09-26 17:43] LABS: Absolute Lymphocytes (CBC) 3.2 K/uL (0.7-4.9); Lymphocytes % 30.4 % (15.3-44.8); MPV 9.3 fL (7.6-11.3); RBC Red Blood Cell Count 4.55 M/uL (3.86-4.86)
[2020-09-26 17:45] LABS: Protime INR 1.02
--- NOTE | 2020-09-26 18:23 | RAD REPORT ---
EXAM DESCRIPTION: Leonel Single View09/26/2020 6:14 pm CLINICAL HISTORY: CVA COMPARISON: 2012 FINDINGS: The lungs appear clear of acute infiltrate. The heart is normal size IMPRESSION: No acute abnormalities displayed
[2020-09-26] MEDS ORDERED: NA CHLORIDE 0.9% 1,000 ML ONE (18:28)
[2020-09-26] MEDS ORDERED: FOLIC ACID 5 MG/ML VIAL ONE (18:29)
--- NOTE | 2020-09-26 18:30 | ER ---
Nurse's Notes [facility] Name: Kim Bean Age: 74 yrs Sex: Female : 1945 Arrival Date: 09/26/2020 Time: 15:53 Bed 26 Private MD: Diagnosis: Cerebral infarction, unspecified-left occipital lobe subacute, 4 cm;Headache Presentation: 09/26 15:54 Chief complaint: Received from outpatient MRI, abnormal results. Pt reports going for hb eye exam last week and dr was concerned for stroke, sent today by Dr. Parry for MRI. Pt c/o headache 06/15 x 1 week. VAN Negative. Coronavirus screen: At this time, the client does not indicate any symptoms associated with coronavirus-19. Ebola Screen: No symptoms or risks identified at this time. Initial Sepsis Screen: Does the patient meet any 2 criteria? No. Patient's initial sepsis screen is negative. Does the patient have a suspected source of infection? No. Patient's initial sepsis screen is negative. Risk Assessment: Do you want to hurt yourself or someone else? Patient reports no desire to harm self or others. Onset of symptoms was September 26, 2020. 15:54 Method Of Arrival: Wheelchair hb 15:54 Acuity: KENNY 3 hb Historical: - Allergies: 15:56 PENICILLINS; hb - PMHx: 15:56 acid reflux; Arthritis; Osteoporosis; hb - Immunization history:: Client reports receiving the 2nd dose of the Covid vaccine. - Social history:: Smoking status: Patient denies any tobacco usage or history of. - Family history:: not pertinent. Screenin:19 Abuse screen: Denies threats or abuse. Nutritional screening: No deficits noted. ll1 Tuberculosis screening: No symptoms or risk factors identified. Fall Risk IV access (20 points). Ambulatory Aid- Crutches/Cane/Walker (15 pts). Gait- Impaired (20 pts.). Total Howe Fall Scale indicates High Risk Score (45 or more points). Fall prevention measures have been instituted. Side Rails Up X 2 Placed Close to Nursing Station Frequent Obs/Assessments Occuring Family Present and informed to notify staff if the need to leave the bedside As available patient and family educated on Fall Prevention Program and Strategies. Assessment: 17:17 General: Appears in no apparent distress. Behavior is calm, cooperative, appropriate ll1 for age. Pain: Complains of pain in R posterior head Pain currently is 7 out of 10 on a pain scale. Quality of pain is described as aching. Neuro: Level of Consciousness is awake, alert, obeys commands, Oriented to person, place, time, situation, Appropriate for age Materials Inspector are equal bilaterally Moves all extremities. Full function Gait is Speech is normal, Facial symmetry appears normal, Reports blurred vision blurry vision at times, none right now. headache. Cardiovascular: No deficits noted. Respiratory: No deficits noted. EENT: Sclera/Cornea are clear in outer aspect of conjuctiva of right eye, iris of right eye, inner aspect of conjuctiva of right eye, outer aspect of conjuctiva of left eye, iris of left eye and inner aspect of conjunctiva of left eye Reports blurred vision. 18:00 Reassessment: No changes from previously documented assessment. Patient and/or family ll1 updated on plan of care and expected duration. Pain level reassessed. 19:32 Reassessment: Patient appears in no apparent distress at this time. Patient and/or em family updated on plan of care and expected duration. Pain level reassessed. Patient is alert, oriented x 3, equal unlabored respirations, skin warm/dry/pink. Patient denies pain at this time. Patient states symptoms have improved. 20:30 Reassessment: Patient appears in no apparent distress at this time. Patient and/or em family updated on plan of care and expected duration. Pain level reassessed. Patient is alert, oriented x 3, equal unlabored respirations, skin warm/dry/pink. 22:42 Reassessment: reports HERNANDEZ, rates pain 6/10, ISABELLA Marie notified, received VO for 50 mg em Tramadol x 1. Vital Signs: 15:54 BP 157 / 61; Pulse 97; Resp 16; Temp 97.2; Pulse Ox 99% on R/A; Weight 87.54 kg; Height hb 5 ft. 2 in. (157.48 cm); Pain 4/10; 17:17 BP 139 / 62; Pulse 75; Resp 16; Pulse Ox 100% on R/A; Pain 7/10; ll1 17:59 BP 149 / 60; Pulse 62; Resp 14; Pulse Ox 100% ; ll1 15:54 Body Mass Index 35.30 (87.54 kg, 157.48 cm) hb Paxton Coma Score: 18:27 Eye Response: spontaneous(4). Verbal Response: oriented(5). Motor Response: obeys wilian commands(6). Total: 15. ED Course: 15:53 Patient arrived in ED. hb 15:56 Triage completed. hb 15:56 Arm band placed on. hb 17:05 Patient placed in an exam room, on a stretcher. ss 17:06 Viola Alfonso, RN is Primary Nurse. ll1 17:17 Maintain EMS IV. Dressing intact. Good blood return noted. Site clean \\T\\ dry. Gauge \\T\\ ll 1 site: 24 G R AC by MRI staff. 17:53 Basic Metabolic Panel Sent. sv 18:02 Alex Aviles MD is Attending Physician. wilian 18:14 XRAY Chest (1 view) In Process Unspecified. EDMS 18:21 EKG done, by ED staff, reviewed by Alex Aviles MD. mh5 18:22 Patient has correct armband on for positive identification. Placed in gown. Bed in low mh5 position. Call light in reach. Side rails up X2. Adult w/ patient. Warm blanket given. lunchroom monitor on. Pulse ox on. NIBP on. 18:28 Rajesh Carrizales DO is Hospitalizing Provider. wilian 22:51 No provider procedures requiring assistance completed. Patient admitted, IV remains in em place. 09/27 02:10 CORONAVIRUS Sent. bs2 02:10 COVID-19 : Document "Date of Symptom Onset" if Symptomatic. Sent. bs2 02:11 Carotid Artery Bilateral US Sent. bs2 Administered Medications: 09/26 18:15 Drug: NS 0.9% 1000 ml Route: IV; Rate: 1 bolus; Site: right antecubital; ll1 22:51 Follow up: IV Status: Completed infusion; IV Intake: 1000ml em 18:15 Drug: foLIC Acid 1 mg Route: IVPB; Site: right antecubital; ll1 18:54 Follow up: Response: No adverse reaction; IV Status: Completed infusion; IV Intake: ll1 0.2ml 18:31 Drug: Aspirin Chewable Tablet 324 mg Route: PO; ll1 18:54 Follow up: Response: No adverse reaction; RASS: Alert and Calm (0) ll1 18:31 Drug: PlaVIX (clopidogrel) 75 mg Route: PO; ll1 18:54 Follow up: Response: No adverse reaction; RASS: Alert and Calm (0) ll1 18:53 Drug: Tylenol 650 mg Route: PO; ll1 22:45 Follow up: Response: No adverse reaction em 22:50 Drug: traMADol 50 mg Route: PO; em Intake: 18:54 IV: 0ml; Total: 0ml. ll1 22:51 IV: 1000ml; Total: 1000ml. em Outcome: 18:30 Decision to Hospitalize by Provider. wilian 22:51 Admitted to ER Hold. Please see [facility] for further documentation. em 22:51 Condition: stable 22:51 Instructed on the need for admit, Demonstrated understanding of instructions. 09/27 13:03 Patient left the ED. jose antoniod3 Signatures: Dispatcher [employer] Janet Schwarz, RN RN Alex Herrera MD MD cha Munoz, Edgar RN Laura Wells RN RN ss Baxter, Heather, RN RN hb Martinez, Maria [facility] Santosh Peraza RN RN jd3 Lewis, Lynsay, RN RN ll1 Ondina Ellsworth RN RN bs2
--- NOTE | 2020-09-26 18:30 | EDPHYS ---
Physician Documentation [facility] Name: Kim Bean Age: 74 yrs Sex: Female : 1945 Arrival Date: 09/26/2020 Time: 15:53 Bed 26 Private MD: ED Physician Alex Aviles HPI: 09/26 18:24 This 74 yrs old Female presents to ER via Wheelchair with complaints of SENT wilian BY DR GOLDMAN - ABNORMAL MRI. 18:24 The patient complains of pain to the top of head, forehead, left frontal area, left wilian side of the back of head, left occipital area, left base of the skull, right frontal area, right side of the back of head, right occipital area and right base of the skull. The patient describes the headache as aching. Onset: The symptoms/episode began/occurred 7 day(s) ago. The patient's problem is reported as headache. Onset: The symptoms/episode began/occurred 7 day(s) ago. Duration: The episode is continuous. Context: the episode(s) was witnessed, by family, daughter. The symptoms are alleviated by nothing. The symptoms are aggravated by nothing. Associated signs and symptoms: The patient has no apparent associated signs or symptoms. Severity of symptoms: At its worst the pain was mild, in the emergency department the pain is unchanged. Headache History: The patient has had previous headaches and this one is similar to previous episodes. Historical: - Allergies: 15:56 PENICILLINS; hb - PMHx: 15:56 acid reflux; Arthritis; Osteoporosis; hb - Immunization history:: Client reports receiving the 2nd dose of the Covid vaccine. - Social history:: Smoking status: Patient denies any tobacco usage or history of. - Family history:: not pertinent. ROS: 18:24 Constitutional: Negative for fever, chills, and weight loss, Eyes: Negative for injury, wilian pain, redness, and discharge, ENT: Negative for injury, pain, and discharge, Neck: Negative for injury, pain, and swelling, Cardiovascular: Negative for chest pain, palpitations, and edema, Respiratory: Negative for shortness of breath, cough, wheezing, and pleuritic chest pain, Abdomen/GI: Negative for abdominal pain, nausea, vomiting, diarrhea, and constipation, Back: Negative for injury and pain, : Negative for injury, bleeding, discharge, and swelling, MS/Extremity: Negative for injury and deformity, Skin: Negative for injury, rash, and discoloration, Psych: Negative for depression, anxiety, suicide ideation, homicidal ideation, and hallucinations, Allergy/Immunology: Negative for hives, rash, and allergies, Endocrine: Negative for neck swelling, polydipsia, polyuria, polyphagia, and marked weight changes, Hematologic/Lymphatic: Negative for swollen nodes, abnormal bleeding, and unusual bruising. 18:24 Neuro: Positive for headache, visual changes. Exam: 18:24 Radiologist reports: negative wilian 18:24 Constitutional: This is a well developed, well nourished patient who is awake, alert, and in no acute distress. Head/Face: Normocephalic, atraumatic. Eyes: Pupils equal round and reactive to light, extra-ocular motions intact. Lids and lashes normal. Conjunctiva and sclera are non-icteric and not injected. Cornea within normal limits. Periorbital areas with no swelling, redness, or edema. ENT: Nares patent. No nasal discharge, no septal abnormalities noted. Tympanic membranes are normal and external auditory canals are clear. Oropharynx with no redness, swelling, or masses, exudates, or evidence of obstruction, uvula midline. Mucous membranes moist. Neck: Trachea midline, no thyromegaly or masses palpated, and no cervical lymphadenopathy. Supple, full range of motion without nuchal rigidity, or vertebral point tenderness. No Meningismus. Chest/axilla: Normal chest wall appearance and motion. Nontender with no deformity. No lesions are appreciated. Cardiovascular: Regular rate and rhythm with a normal S1 and S2. No gallops, murmurs, or rubs. Normal PMI, no JVD. No pulse deficits. Respiratory: Lungs have equal breath sounds bilaterally, clear to auscultation and percussion. No rales, rhonchi or wheezes noted. No increased work of breathing, no retractions or nasal flaring. Abdomen/GI: Soft, non-tender, with normal bowel sounds. No distension or tympany. No guarding or rebound. No evidence of tenderness throughout. Back: No spinal tenderness. No costovertebral tenderness. Full range of motion. Female : Normal external genitalia. Skin: Warm, dry with normal turgor. Normal color with no rashes, no lesions, and no evidence of cellulitis. MS/ Extremity: Pulses equal, no cyanosis. Neurovascular intact. Full, normal range of motion. Neuro: Awake and alert, GCS 15, oriented to person, place, time, and situation. Cranial nerves II-XII grossly intact. Motor strength 5/5 in all extremities. Sensory grossly intact. Cerebellar exam normal. Normal gait. Psych: Awake, alert, with orientation to person, place and time. Behavior, mood, and affect are within normal limits. 18:31 ECG was reviewed by the Attending Physician. [facility] Vital Signs: 15:54 BP 157 / 61; Pulse 97; Resp 16; Temp 97.2; Pulse Ox 99% on R/A; Weight 87.54 kg; Height hb 5 ft. 2 in. (157.48 cm); Pain 4/10; 17:17 BP 139 / 62; Pulse 75; Resp 16; Pulse Ox 100% on R/A; Pain 7/10; ll1 17:59 BP 149 / 60; Pulse 62; Resp 14; Pulse Ox 100% ; ll1 15:54 Body Mass Index 35.30 (87.54 kg, 157.48 cm) hb Pxaton Coma Score: 18:27 Eye Response: spontaneous(4). Verbal Response: oriented(5). Motor Response: obeys [facility] commands(6). Total: 15. MDM: 18:02 Patient medically screened. wilian 18:27 Differential diagnosis: cluster headache, cerebral vascular accident, CVA, Dementia, wilian hypertensive headache, hypoglycemia, hyponatremia, neoplasm, otitis, subarachnoid bleed, subdural hematoma, temporal arteritis, tension headache, traumatic injuries, uremia. Data reviewed: vital signs, nurses notes, lab test result(s), EKG, radiologic studies, CT scan, plain films. 09/26 17:26 Order name: Basic Metabolic Panel 09/26 17:26 Order name: CBC with Diff; Complete Time: 18:03 09/26 17:26 Order name: LFT's 09/26 17:26 Order name: Magnesium 09/26 17:26 Order name: NT PRO-BNP 09/26 17:26 Order name: PT-INR; Complete Time: 18:03 09/26 17:26 Order name: Troponin (emerg Dept Use Only) 09/26 17:27 Order name: Basic Metabolic Panel [facility] 09/26 18:03 Order name: Sed Rate wilian 09/26 18:16 Order name: C-Reactive Protein [facility] 09/26 19:34 Order name: COVID-19 : Document "Date of Symptom Onset" if Symptomatic. em1 09/26 20:53 Order name: CORONAVIRUS [facility] 09/26 21:45 Order name: SARS-COV-2 RT PCR [facility] 09/26 17:26 Order name: XRAY Chest (1 view); Complete Time: 18:37 09/26 18:22 Order name: Carotid Artery Bilateral [facility] 09/26 19:55 Order name: US [facility] 09/27 03:12 Order name: Urine Dipstick-Ancillary [facility] 09/27 05:43 Order name: CBC with Automated Diff [facility] 09/27 05:53 Order name: Comprehensive Metabolic Panel [facility] 09/27 05:53 Order name: Lipid Profile [facility] 09/27 05:53 Order name: T4 Free [facility] 09/27 05:53 Order name: Magnesium [facility] 09/27 05:53 Order name: Thyroid Stimulating Hormone [facility] 09/27 12:28 Order name: CT [facility] 09/26 17:26 Order name: EKG; Complete Time: 17:27 09/26 17:26 Order name: Cardiac monitoring; Complete Time: 17:53 09/26 17:26 Order name: EKG - Nurse/Tech; Complete Time: 17:53 09/26 17:26 Order name: IV Saline Lock; Complete Time: 17:27 09/26 17:26 Order name: Labs collected and sent; Complete Time: 17:27 09/26 17:26 Order name: O2 Per Protocol; Complete Time: 17:27 09/26 17:26 Order name: O2 Sat Monitoring; Complete Time: 17:27 09/26 18:54 Order name: Diet Heart Healthy; Complete Time: 18:54 ll1 EC:31 Rate is 67 beats/min. Rhythm is regular. QRS [place] is Normal. [place] interval is normal. QRS wilian interval is normal. QT interval is normal. No Q waves. T waves are Normal. No ST changes noted. Clinical impression: NSR w/ Non-specific ST/T Changes and No evidence of ischemia. Interpreted by me. Reviewed by me. Administered Medications: 18:15 Drug: NS 0.9% 1000 ml Route: IV; Rate: 1 bolus; Site: right antecubital; ll1 22:51 Follow up: IV Status: Completed infusion; IV Intake: 1000ml em 18:15 Drug: foLIC Acid 1 mg Route: IVPB; Site: right antecubital; ll1 18:54 Follow up: Response: No adverse reaction; IV Status: Completed infusion; IV Intake: ll1 0.2ml 18:31 Drug: Aspirin Chewable Tablet 324 mg Route: PO; ll1 18:54 Follow up: Response: No adverse reaction; RASS: Alert and Calm (0) ll1 18:31 Drug: PlaVIX (clopidogrel) 75 mg Route: PO; ll1 18:54 Follow up: Response: No adverse reaction; RASS: Alert and Calm (0) ll1 18:53 Drug: Tylenol 650 mg Route: PO; ll1 22:45 Follow up: Response: No adverse reaction em 22:50 Drug: traMADol 50 mg Route: PO; em Disposition Summary: 09/26/20 18:30 Hospitalization Ordered Hospitalization Status: Observation wilian Provider: Rajesh Carrizales wilian Condition: Stable wilian Problem: new wilian Symptoms: have improved wilian Bed/Room Type: Standard wilian Location: Telemetry/MedSurg (observation)(09/27/20 11:26) eb Room Assignment: Formerly named [facility](09/27/20 11:26) eb Diagnosis - Cerebral infarction, unspecified - left occipital lobe subacute, 4 cm wilian - Headache wilian Forms: - Medication Reconciliation Form wilian - SBAR form wilian Signatures: Dispatcher [employer] EDSC Alex Aviles MD MD cha Munoz, Edgar, RN RN Laura Smart RN RN Frank Easton, KNOT TIER-C KNOT TIER-Leonor1 Sosa Butler RN RN cg Baxter, Heather, RN RN hb Botello, Elizabeth eb Lewis, Lynsay, RN RN ll1 Corrections: (The following items were deleted from the chart) 18:15 18:04 C-REACTIVE PROTEIN+C.LAB.BRZ ordered. EDSC EDSC 21:37 18:30 Telemetry/MedSurg (observation) wilian cg 21:37 18:30 wilian cg 09/27 11:26 09/26 21:37 BR ER HOLD cg eb 09/27 11:26 07/22 21:37 ERHOLD- eb
[2020-09-26] MEDS ORDERED: CLOPIDOGREL 75 MG TABLET ONE (18:48)
[2020-09-26] MEDS ORDERED: ASPIRIN 81 MG CHEWABLE TABLET ONE (18:48)
[2020-09-26 18:57] LABS: ALT/SGPT 44 U/L (12-78); AST/SGOT 32 U/L (15-37); Alkaline Phosphatase 52 U/L (45-117); BUN Blood Urea Nitrogen 23 mg/dL (7-18); Bicarbonate 25 mmol/L (21-32); Bilirubin Direct 0.1 mg/dL (0-0.2); Bilirubin Total 0.4 mg/dL (0.2-1.0); Glucose Level 105 mg/dL (74-106); Magnesium 2.5 mg/dL (1.8-2.4); NT PRO-BNP 75 pg/mL (<450); Potassium 4.1 mmol/L (3.5-5.1); Protein, Total 8.2 g/dL (6.4-8.2); Sodium Level 138 mmol/L (136-145); Troponin (Emerg Dept Use Only) < 0.02 ng/mL (0.0-0.045)
[2020-09-26 19:03] LABS: C-Reactive Protein < 2.90 mg/L (<3.00)
[2020-09-26] MEDS ORDERED: ACETAMINOPHEN 325 MG TABLET ONE (19:11)
--- NOTE | 2020-09-26 19:33 | P.HP ---
Certification for Inpatient Patient admitted to: Observation With expected LOS: <2 Midnights Patient will require the following post-hospital care: None Practitioner: I am a practitioner with admitting privileges, knowledge of patient current condition, hospital course, and medical plan of care. Services: Services provided to patient in accordance with Admission requirements found in Title 42 Section 412.3 of the Code of Federal Regulations Patient History Date of Service: 09/26/20 Primary Care Provider: Dr. Parry Reason for admission: Subacute CVA History of Present Illness: 74-year-old female with history of osteoarthritis, GERD presents to the emergency department with chief complaint of abnormal imaging study. Patient reports she is had ongoing headaches over the course the last 1 week and had an outpatient MRI which demonstrated a 4 cm subacute stroke within the left occipital lobe. Patient without any focal neurological deficits on exam at this time although she does report that she has had issues with swallowing although that has been going on for many years. ED progress is to admit under obser vation for further evaluation and management of a subacute CVA. NIH zero Allergies Penicillins Allergy (Mild, Verified 11/16/18 06:02) Hives; lips/eyes swell Home Medications: Rosuvastatin [Crestor*] 1 tab PO BEDTIME 11/16/18 Sucralfate [Carafate*] 1 gm PO QID 11/16/18 Omeprazole [Prilosec] 40 mg PO DAILY 20 Days #20 capsule. 11/20/18 Promethazine HCl 25 mg PO Q6H PRN 5 Days #20 tablet 11/20/18 Tramadol HCl [Ultram] 50 mg PO Q6H PRN 3 Days #12 tablet 11/20/18 levoFLOXacin [Levaquin] 500 mg PO DAILY 10 Days #10 tab 11/20/18 - Past Medical/Surgical History Diabetic: No -: reflux -: scleroderma -: Osteoarthritis -: hysterectomy -: cholecystectomy Psychosocial/ Personal History: Lives with daughter, retired - Family History Mother -: Diabetes Father -: Other (see notes) (Parkinson's) Sister -: Cancer - Social History Smoking Status: Never smoker Alcohol use: No CD- Drugs: No Place of Residence: Home Review of Systems 10-point ROS is otherwise unremarkable Neurological: Other (Headaches) Physical Examination - Physical Exam General: Alert, In no apparent distress, Oriented x3 HEENT: Atraumatic, PERRLA, Mucous membr. moist/pink, EOMI, Sclerae nonicteric Neck: Supple, 2+ carotid pulse no bruit, No LAD, Without JVD or thyroid abnormality Respiratory: Clear to auscultation bilaterally, Normal air movement Cardiovascular: Regular rate/rhythm, Normal S1 S2 Gastrointestinal: Normal bowel sounds, No tenderness Musculoskeletal: No tenderness Integumentary: No rashes Neurological: Normal speech, Normal strength at 5/5 x4 extr, Normal tone, Sensation intact, Cranial nerves 3-12 intact, Normal affect Lymphatics: No axilla or inguinal lymphadenopathy - Studies Laboratory Data (last 24 hrs) 09/26/20 17:30: PT 11.7, INR 1.02 09/26/20 17:30: WBC 10.50, Hgb 14.4, Hct 43.0, Plt Count 223 09/26/20 17:30: Sodium 138, Potassium 4.1, BUN 23 H, Creatinine 1.31 H, Glucose 105, Magnesium 2.5 H, Total Bilirubin 0.4, AST 32, ALT 44, Alkaline Phosphatase 52 Assessment and Plan - Plan Assessment: 4 cm subacute CVA left occipital lobe GERD Osteoarthritis Plan: 4 cm subacute CVA left occipital lobe: Neurology consulted. Continue with aspirin, Plavix, statin, folic acid. Echocardiogram, carotid ultrasound, physical therapy, speech therapy ordered. DVT prophylaxis with Lovenox. NIH currently zero. Patient does report some difficulty swallowing but this is gone on over the course of many years and is followed by GI. Again will have patient evaluated by speech therapy but at this time did pass bedside swallow screen. GERD: Continue medications Osteoarthritis: Continue medications. DVT PPX: Lovenox Code status: Full Discharge Plan: Home Plan to discharge in: 24 Hours - Advance Directives Does patient have a Living Will: No Does patient have a Durable POA for Healthcare: No - Code Status/Comfort Care Code Status Assessed: Yes (Full code) Time Spent Managing Pts Care (In Minutes): 55
--- NOTE | 2020-09-26 19:54 | RAD REPORT ---
EXAM DESCRIPTION: USCarotid Artery Bilateral09/26/2020 7:27 pm CLINICAL HISTORY: TIA COMPARISON: None FINDINGS: The velocity of the right internal carotid artery equals 90 cm/sec. The right ICA/CCA rati o 1.1 The velocity of the left internal carotid artery equals 95 cm/sec. The left ICA/CCA ratio .8 Mild plaque is present within the carotid arteries. The vertebral arteries demonstrate antegrade flow IMPRESSION: Mild plaque within the carotid arteries without evidence of a hemodynamically significan t stenosis NASCET criteria used. Mild 0-49% stenosis Moderate 50-69% stenosis Severe 70-99% stenosis
[2020-09-26] MEDS ORDERED: ONDANSETRON 4 MG/2 ML VIAL IV PRN (22:12)
[2020-09-26] MEDS ORDERED: ATORVASTATIN 40 MG TAB PO SCH (22:12)
[2020-09-26] MEDS ORDERED: ATORVASTATIN 20 MG TAB PO SCH (22:45)
[2020-09-26] MEDS ORDERED: TRAMADOL HCL 50 MG TAB ONE (23:09)
[2020-09-27 03:12] LABS: Urine Blood Trace-intact (Negative); Urine Glucose Negative (Negative); Urine Protein Negative (Negative); Urine Specific Gravity 1.015 (1.005-1.030)
[2020-09-27 05:26] LABS: Absolute Lymphocytes (CBC) 2.8 K/uL (0.7-4.9); Basophils % 0.8 % (0-1.3); Hematocrit 39.7 % (36.0-45.0); Lymphocytes % 36.5 % (15.3-44.8); RBC Red Blood Cell Count 4.24 M/uL (3.86-4.86)
[2020-09-27 05:48] LABS: Albumin 3.3 g/dL (3.4-5.0); Bilirubin Total 0.4 mg/dL (0.2-1.0); Magnesium 2.3 mg/dL (1.8-2.4); Protein, Total 6.8 g/dL (6.4-8.2); Thyroid Stimulating Hormone 1.62 uIU/mL (0.360-3.740)
[2020-09-27 06:03] VITALS: BMI 35.3
[2020-09-27] MEDS ORDERED: CLOPIDOGREL 75 MG TABLET PO SCH (09:00)
[2020-09-27] MEDS ORDERED: FOLIC ACID 1 MG TABLET PO SCH (09:00)
[2020-09-27] MEDS ORDERED: ENOXAPARIN 40 MG/0.4 ML SQ SCH (09:00)
[2020-09-27] MEDS ORDERED: ENOXAPARIN 40 MG/0.4 ML SQ ONE (09:32)
[2020-09-27] MEDS ORDERED: CLOPIDOGREL 75 MG TABLET ONE (09:32)
[2020-09-27] MEDS ORDERED: FOLIC ACID 1 MG TABLET ONE (09:32)
[2020-09-27] MEDS: ACETAMINOPHEN 500 MG TAB PO PRN ×2 (10:38→14:58)
[2020-09-27] MEDS ORDERED: ACETAMINOPHEN 500 MG TAB ONE (10:59)
[2020-09-27] MEDS ORDERED: PNEUMOCOCCAL VACCINE 0.5 ML IMVAC ONE (11:00)
--- NOTE | 2020-09-27 11:30 | ECHO ---
HEIGHT: 5 ft 2 in WEIGHT: 193 lb 0 oz DATE OF STUDY: 09/27/[address]: Frank Easton NP 2-DIMENSIONAL: YES M.MODE: YES DOPPLER: YES COLOR FLOW: YES TDS: NO PORTABLE: NO DEFINITY: NO BUBBLE STUDY: NO DIAGNOSIS: CEREBRAL VASCULAR ACCIDENT CARDIAC HISTORY: CATHERIZATION: NO SURGERY: NO PROSTHETIC VALVE: NO PACEMAKER: NO MEASUREMENTS (cm) DIASTOLIC (NORMALS) SYSTOLIC (NORMALS) IVSd 1.1 (0.6-1.2) LA Diam 2.5 (1.9-4.0) LVEF 56% LVIDd 3.2 (3.5-5.7) LVIDs 2.3 (2.0-3.5) %FS 28% LVPWd 1.0 (0.6-1.2) Ao Diam 2.7 (2.0-3.7) 2 DIMENSIONAL ASSESSMENT: RIGHT ATRIUM: NORMAL LEFT ATRIUM: NORMAL RIGHT VENTRICLE: NORMAL LEFT VENTRICLE: NORMAL TRICUSPID VALVE: NORMAL MITRAL VALVE: NORMAL PULMONIC VALVE: NORMAL AORTIC VALVE: NORMAL PERICARDIAL EFFUSION: NONE AORTIC ROOT: NORMAL LEFT VENTRICULAR WALL MOTION: NORMAL DOPPLER/COLOR FLOW: MILD TRICUSPID REGURGITATION. COMMENTS: NORMAL LEFT VENTRICULAR EJECTION FRACTION 55-60%. NORMAL WALL MOTION. MILD TRICUSPID REGURGITATION. TECHNOLOGIST: Shruthi GABRIEL
--- NOTE | 2020-09-27 12:27 | RAD REPORT ---
EXAM DESCRIPTION: CT - Head angio - 09/27/2020 12:03 pm CLINICAL HISTORY: subacute CVA TECHNIQUE: During dynamic enhancement using nonionic IV contrast, axial 1 millimeter thick images of the head were obtained. Sagittal and axial reconstruction images were generated using MIP technique and reviewed. All CT scans are performed using dose optimization technique as appropriate and may include automated exposure control or mA/KV adjustment according to patient size. COMPARISON: MRI September 26 FINDINGS: No aneurysm or vascular malformation identified. Major venous sinuses are patent. No stenosis, named branch occlusion, vasculitis or other significant vascular finding identifiable. N o extravasation of intravascular contrast material. No specific CT angio abnormality as a correlate for the area of infarcted parenchyma. IMPRESSION: CT angio head examination shows no suspicious finding. No specific vascular finding as a source or correlate to the area of infarcted brain parenchyma.
[2020-09-27 13:11] VITALS: O2SAT 100
--- NOTE | 2020-09-27 15:11 | CON ---
Consultation called because of stroke. History Of Present Illness: Ms. Bean is a 74-year-old, right-handed, patient with dyslipid emia who comes to [facility], actually sent by her mobile phone salesperson after she was discovered to have v isual field loss. The patient said her symptoms began more than a week ago. She had some difficulty with vision, perhaps blurred vision and did tend to bump into things on the right more than left mendel e. At [facility], her brain imaging identified a left occipital stroke that was subacute. I n terms of her deficit, at the time, the emergency room physician could not identify a visual field d eficit and she had no motor, sensory, or coordination deficits. She was treated with aspirin 81 mg d aily, which she was not taking. She was put on statin 40 mg at night. She had permissive hypertensi on, given folic acid and had an echocardiogram which showed no significant abnormalities. CT angiogr am of her head showed no branch blockages and her ejection fraction was 56% of the echocardiogram. T here was mild tricuspid regurgitation, otherwise unremarkable. Complete blood count with differentia l was normal. Coagulation panel was unremarkable. Chemistries showed dehydration with creatinine el evated at 1.31. Liver function studies normal. LDL cholesterol elevated at 102, HDL cholesterol 41, total cholesterol 170. Thyroid function was normal. Urinalysis showed a trace of blood, trace of e sterase and COVID-19 test was negative. Past Medical History: As indicated in addition to gastroesophageal reflux, scleroderma, osteoarthritis. Allergies: PENICILLIN. Medications: At home, Crestor daily, sucralfate 1 g daily, Prilosec 40 mg daily, promethazine 25 mg every 6 hours as needed, Ultram 50 mg every 4 hours as needed. She was on Levaquin, completing 10 da ys. Past Surgical History: Hysterectomy, cholecystectomy. Family History: Diabetes in mother, Parkinson's in father and cancer in sister. Social History: No alcohol, tobacco, or IV drug use. Review of Systems: Aside from the visual change and nausea and reflux. She denied any other positives on a 1 0-point systems review. Physical Examination: Vital Signs: Blood pressure 155/64, pulse 70, respiratory rate 16, temperature 98.3, and saturation 97% room air. Weight 193 pounds, height 5 feet 2 inches, BMI 35.3. General: Ms. Bean is walking i n the jalloh at the time of my evaluation. HEENT: She is normocephalic, atraumatic. Sclerae anicteric. Oropharynx is pink and moist. Neck: Supple. Chest: Clear. Heart: Regular. Extremities: Show no edema, cyanosis, or clubbing Neurologic: She is alert and oriented to person, p lace, situation. Cranial nerves 2 though 12 shows focal deficits in the right visual field, but most ly . Moving fingers in all 4 quadrants. Cranial nerves again intact otherwise. Motor exa mination, 5/5 proximally and distally. Sensory exam very subtle stocking-glove loss, light touch, te mperature in arms and legs. Reflexes 1+ and symmetric in upper and lower extremities. Coordination intact in upper and lower extremities. Gait, she has good stance, stride, and arm swing. Assesment: Ms. Bean is 74-year-old patient with left occipital stroke, , dyslipidemia, de hydration, and not taking aspirin. She is seeing an mobile phone salesperson and will follow up with them. Plan: 1.Since her intracranial vessels show no significant abnormalities, only medical management is requi red at this point. So, she will have high-dose statin. 2.Folic acid 1 mg daily. 3.Aspirin 80 mg daily. 4.Close eye on her blood sugars and blood pressure. 5.She was told of the importance of modifying diet and exercise towards reducing stroke risk. 6.After discharge, follow up with Dr. Velásquez's clinic 1 month later. BHAVNA/OLY Voice ID: [id number] Report ID: [id number]
--- NOTE | 2020-09-27 16:32 | P.DS ---
Admission Date: 09/26/20 Discharge Date: 09/27/20 Primary Care Provider: Dr. Parry Disposition: ROUTINE DISCHARGE Reason for Admission: Subacute CVA Consultations: Neurology - Dr. Velásquez Procedures: CXR (09/26): No acute abnormalities displayed Carotid U/S (09/26): Mild plaque within the carotid arteries without evidence of a hemodynamically significant stenosis CTA Head (09/27): CT angio head examination shows no suspicious finding. No specific vascular finding as a source or correlate to the area of infarcted brain parenchyma. Echo (09/27): normal LVEF: 55-60%. normal wall motion. 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 Patient reports she is had ongoing headaches over the course the last 1 week and had an outpatient MRI which demonstrated a 4 cm subacute stroke within the left occipital lobe. Patient without any focal neurological deficits on exam at this time although she does report that she has had issues with swallowing although that has been going on for many years. ED progress is to admit under observation for further evaluation and management of a subacute CVA. NIH zero Hospital Course: Patient was evaluated by PT and neurology. She did well and was noted with some diminished visual acuity in her right peripheral vision. Stroke workup did not reveal any other significant findings. Neurology recommended medical management, and patient was deemed stable for discharge home. Her daughter was updated. Recommended outpatient physical therapy. Patient is not allowed to drive until cleared by neurology Vital Signs/Physical Exam: Temp Pulse Resp BP Pulse Ox 97.8 F 72 16 174/71 H 97 09/27/20 13:00 09/27/20 13:00 09/27/20 13:00 09/27/20 13:00 09/27/20 13:00 General: Alert, In no apparent distress, Oriented x3, Confused (mild, intermittently) HEENT: Sclerae nonicteric Respiratory: Clear to auscultation bilaterally, Normal air movement Cardiovascular: No edema, Regular rate/rhythm, Normal S1 S2 Gastrointestinal: Soft and benign, Non-distended, No tenderness Musculoskeletal: No erythema, No tenderness Integumentary: No rashes, No significant lesion Neurological: Normal speech, Normal strength at 5/5 x4 extr, Cranial nerves 3-12 intact, Normal affect Laboratory Data at Discharge: WBC 7.60 K/uL (4.3-10.9) D 09/27/20 05:00 Hgb 13.5 g/dL (12.0-15.0) 09/27/20 05:00 Hct 39.7 % (36.0-45.0) 09/27/20 05:00 Plt Count 187 K/uL (152-406) 09/27/20 05:00 PT 11.7 SECONDS (9.5-12.5) 09/26/20 17:30 INR 1.02 09/26/20 17:30 Sodium 143 mmol/L (136-145) 09/27/20 05:00 Potassium 4.0 mmol/L (3.5-5.1) 09/27/20 05:00 BUN 18 mg/dL (7-18) 09/27/20 05:00 Creatinine 1.14 mg/dL (0.55-1.3) 09/27/20 05:00 Glucose 96 mg/dL (74-106) 09/27/20 05:00 Magnesium 2.3 mg/dL (1.8-2.4) 09/27/20 05:00 Total Bilirubin 0.4 mg/dL (0.2-1.0) 09/27/20 05:00 AST 24 U/L (15-37) 09/27/20 05:00 ALT 36 U/L (12-78) 09/27/20 05:00 Alkaline Phosphatase 45 U/L (45-117) 09/27/20 05:00 Triglycerides 136 mg/dL (<150) 09/27/20 05:00 Cholesterol 170 mg/dL (<200) 09/27/20 05:00 HDL Cholesterol 41 mg/dL (40-60) 09/27/20 05:00 Cholesterol/HDL Ratio 4.15 09/27/20 05:00 Home Medications: Alendronate Sodium 70 mg PO SEECOM 09/27/20 Aspirin [Aspirin EC] 81 mg PO DAILY 30 Days #30 tablet. 09/27/20 Atorvastatin Calcium [Lipitor] 40 mg PO BEDTIME 30 Days #30 tablet 09/27/20 Clopidogrel Bisulfate [Plavix*] 75 mg PO DAILY 30 Days #30 tablet 09/27/20 Folic Acid 1 mg PO DAILY 30 Days #30 tablet 09/27/20 Hyoscyamine Sulfate 1 tab SL Q6H PRN 09/27/20 Losartan Potassium 50 mg PO DAILY 09/27/20 Meclizine HCl 1 tab PO DAILY PRN 09/27/20 Omeprazole 1 tab PO DAILY PRN 09/27/20 buPROPion HCL [Bupropion HCl Sr] 1 tab PO DAILY 09/27/20 New Medications: Aspirin [Aspirin EC] 81 mg PO DAILY 30 Days #30 tablet. Folic Acid 1 mg PO DAILY 30 Days #30 tablet Atorvastatin Calcium [Lipitor] 40 mg PO BEDTIME 30 Days #30 tablet Clopidogrel Bisulfate [Plavix*] 75 mg PO DAILY 30 Days #30 tablet Physician Discharge Instructions: PROBLEM: Stroke GOAL: Clear understanding of disease process INSTRUCTIONS: Diet: heart healthy Activity: As tolerated If your symptoms worsen call 911 or go to the ED. You were found to have a stroke in your left occipital lobe. This region would effect your vision. You are discharged on aspirin, plavix, and cholesterol medication. Recommend folic acid as well for some neuroprotection. Patient's with strokes can have confusion and loss of memory at times. You are not allowed to drive until cleared by neurology. Recommend outpatient physical therapy / occupational therapy to improve performance and independence with community mobility, improve activity tolerance, balance and visual acuity. You were noted to have slight decrease in visual acuity on your right peripheral vision. Recommend follow up with neurology in ~1 month. Follow up with Ophthalmology in ~1 month Diet: AHA Activity: Ad jarrell Followup: Umer Velásquez MD [ASSOCIATE-ACTIVE - CAN ADMIT] - Foster Parry DO [Primary Care Provider] - Time spent managing pt's care (in minutes): 40
[2020-09-27 16:59] VITALS: BP 141/63; TEMP 97.6
== END 2020-09-27 17:36 | disposition home or self-care (01) ==
LOC: ER 15:50 → ERHOLD 18:57 → 2ND 09-27 12:51
PROVIDERS: ADMIT Hospitalist; ATTEND Hospitalist
DX: I63.89 Other cerebral infarction (principal); R29.700 NIHSS score 0; K21.9 Gastro-esophageal reflux disease without esophagitis; R13.10 Dysphagia, unspecified; E78.5 Hyperlipidemia, unspecified; M19.90 Unspecified osteoarthritis, unspecified site; M34.9 Systemic sclerosis, unspecified; E86.0 Dehydration; M81.0 Age-related osteoporosis without current pathological fracture; Z20.822 Contact with and (suspected) exposure to COVID-19; Z79.899 Other long term (current) drug therapy; Z88.0 Allergy status to penicillin; Z90.710 Acquired absence of both cervix and uterus; Z90.49 Acquired absence of other specified parts of digestive tract; Z83.3 Family history of diabetes mellitus; Z82.0 Family history of epilepsy and other diseases of the nervous system; Z80.9 Family history of malignant neoplasm, unspecified
CPT/HCPCS: 96365; 96361; 93005; 93306; 85025 ×2; 80048; 36415; 83735 ×2; 85610; 80061; 80076; 85652; 84443; 81003; 84484; 84439; 80053; 83880; 86140; 70496; 71045; 93880; 97116; 97161; 99285; U0003; Q9967; J1650; J7030; G0378 ×2; 70553; 82565; A9577

== ENCOUNTER 2021-08-03 09:07 | Emergency (ER) | payer OTHER ==
--- OUTSIDE RECORDS SUMMARY | 2021-08-03 09:10 | XMS REPORT | Continuity of Care Document ---
:1945 Author Organization [facility] t Address [address] [id number] Care Team Providers Name Role Phone Darian Parry Attending Clinician Unavailable ARASH PETERS Attending Clinician Unavailable ARASH PETERS Attending Clinician Unavailable Problems This patient has no known problems. Allergies, Adverse Reactions, Alerts Allergy Allergy Status Severity Reaction(s) Onset Inactive Treating Comm ents Source Name Type Date Date Clinician NO KNOWN Drug Active [facility] Medications This patient has no known medications. Procedures This patient has no known procedures. Encounters Start End Encounter Admission Attending Care Care Encounter Source Date/Time Date/Time Type Type Clinicians Facility Department ID 2021-06-27 Outpatient Parry, [facility] [id number] Common 11:14:01 Foster [facility] 2021-04-17 Outpatient Parry, [facility] [id number] Common 09:01:01 Foster [facility] 2021-04-02 Outpatient Parry, [facility] [id number] Common 14:10:13 Foster [id number] [facility] 2021-04-02 Outpatient Parry, [facility] [id number] Common 13:48:24 Foster [id number] [facility] 2021-04-02 Outpatient Parry, [facility] [id number] Common 13:32:14 Foster [id number] [facility] 2021-04-02 Outpatient Parry, [facility] [id number] Common 13:27:52 Foster [id number] [facility] 2021-04-02 Outpatient Parry, [facility] [id number] Common 13:26:49 Foster [id number] [facility] 2021-04-02 Outpatient Parry, [facility] [id number] Common 13:16:50 Foster [id number] [facility] 2021-04-02 Outpatient Parry, [facility] [id number] Common 13:15:51 Foster [id number] [facility] 2021-04-02 Outpatient Parry, [facility] [id number] Common 13:03:19 Foster [id number] [facility] 2021-04-02 Outpatient Parry, [facility] [id number] Common 12:28:06 Foster [id number] [facility] 2021-04-02 Outpatient Parry, [facility] [id number] Common 12:02:38 Foster [id number] [facility] 2021-04-02 Outpatient Parry, [facility] [id number] Common 12:02:11 Foster [id number] [facility] 2021-04-02 Outpatient Parry, [facility] [id number] Common 11:59:39 Foster [id number] [facility] 2021-07-16 2021-07-16 ambulatory [facility] [id number] Common 00:00:00 00:00:00 [facility] 2021-06-26 2021-06-26 ambulatory [facility] [id number] Common 00:00:00 00:00:00 [facility] 2021-06-26 2021-06-26 ambulatory [facility] [id number] Common 00:00:00 00:00:00 [facility] 2021-04-09 2021-04-09 ambulatory [facility] [id number] Common 00:00:00 00:00:00 [facility] 2021-03-20 2021-03-20 ambulatory [facility] [id number] Common 00:00:00 00:00:00 [facility] 2021-03-14 2021-03-14 ambulatory [facility] [id number] Common 00:00:00 00:00:00 [facility] 2021-03-10 2021-03-10 ambulatory [facility] [id number] Common 00:00:00 00:00:00 [facility] 2021-03-04 2021-03-04 ambulatory [facility] [id number] Common 00:00:00 00:00:00 [facility] 2021-01-24 2021-01-24 ambulatory [facility] [id number] Common 00:00:00 00:00:00 [facility] 2020-11-19 2020-11-19 Outpatient [facility] [id number] Common 00:00:00 00:00:00 [facility] 2020-10-10 2020-10-10 Outpatient [facility] [id number] Common 00:00:00 00:00:00 [facility] 2020-10-03 2020-10-03 Outpatient [facility] [id number] Common 00:00:00 00:00:00 [facility] 2020-09-30 2020-09-30 Outpatient [facility] [id number] Univers 13:00:00 13:00:00 LUISA PETERS [id number] [facility] 2020-09-30 2020-09-30 Outpatient [facility] [id number] Univers 13:00:00 13:00:00 LUISA PETERS [facility] 2020-09-23 2020-09-23 Outpatient [facility] [id number] Common 00:00:00 00:00:00 [facility] 2020-09-19 2020-09-19 Outpatient [facility] [id number] Common 00:00:00 00:00:00 [facility] 2020-09-18 2020-09-18 Outpatient [facility] [id number] Common 00:00:00 00:00:00 [facility] 2020-08-23 2020-08-23 Outpatient [facility] [id number] Common 00:00:00 00:00:00 [facility] 2020-08-14 2020-08-14 Outpatient [facility] [id number] Common 00:00:00 00:00:00 [facility] 2020-07-16 2020-07-16 Outpatient [facility] [id number] Common 00:00:00 00:00:00 [facility] 2020-07-16 2020-07-16 Outpatient [facility] [id number] Common 00:00:00 00:00:00 [facility] 2020-04-17 2020-04-17 Outpatient [facility] [id number] Common 00:00:00 00:00:00 [facility] 2020-01-11 2020-01-11 Outpatient [facility] [id number] Common 00:00:00 00:00:00 [facility] Results This patient has no known results.
[2021-08-03] MEDS ORDERED: ACETAMINOPHEN 500 MG TAB ONE (09:53)
--- NOTE | 2021-08-03 10:17 | RAD REPORT ---
EXAM DESCRIPTION: CT - Head C Spine Cap Wo Con - 08/03/2021 9:54 am CLINICAL HISTORY: Trauma, head and neck injury. Chest, abdomen and pelvis pain. headache, right lateral chest pain COMPARISON: No comparisons TECHNIQUE: CT head without contrast. CT cervical spine without contrast with coronal and sagittal reformatted images. CT chest, abdomen and pelvis without contrast with coronal and sagittal reformatted images of the [facility] [place]. All CT scans are performed using dose optimization technique as appropriate and may include automated exposure control or mA/KV adjustment according to patient size. FINDINGS: CT HEAD WITHOUT CONTRAST: No intracranial hemorrhage, hydrocephalus or extra-axial fluid collection. No areas of brain edema o r midline shift. The paranasal sinuses and mastoids are clear. The calvarium is intact. CT CERVICAL SPINE WITHOUT CONTRAST: No fracture or subluxation. The prevertebral soft tissues are normal in thickness. CT CHEST, ABDOMEN, PELVIS WITHOUT CONTRAST: NOTE: Lack of contrast is a significant limitation in the assessment of trauma related findings. Spec ifically, solid organ, vascular and bowel evaluation is significantly limited. The lungs are clear.No pneumothorax or pericardial/pleural fluid. No evidence of intra-abdominal visceral injury, free fluid or free air is seen within the above detai led limitations. Cholecystectomy. No concerning pelvic findings. Moderate lumbosacral degenerative changes. No fractures. IMPRESSION: Negative for acute traumatic findings within the above detailed limitations.
--- NOTE | 2021-08-03 11:39 | RAD REPORT ---
EXAM DESCRIPTION: RAD - Humerus Right - 08/03/2021 11:08 am CLINICAL HISTORY: PAIN COMPARISON: No comparisons FINDINGS: No acute fracture or dislocation is seen.
--- NOTE | 2021-08-03 12:11 | EDPHYS ---
Physician Documentation [facility] Name: Kim Bean Age: 75 yrs Sex: Female : 1945 Arrival Date: 08/03/2021 Time: : Bed 14 Private MD: Sohan [facility] ED Physician Darius Kim HPI: 08/03 09:28 This 75 yrs old Female presents to ER via Ambulatory with complaints of Fall cp Injury, right rib pain. 09:28 Details of fall: The patient fell from an upright position, while walking, lost cp balance. Onset: The symptoms/episode began/occurred this morning. Associated injuries: The patient sustained injury to the head, pain, injury to the chest, specifically the right lateral lower rib area, right upper arm. Historical: - Allergies: 09:19 PENICILLINS; iw - PMHx: 09:19 acid reflux; Arthritis; Osteoporosis; iw - Immunization history:: Adult Immunizations. - Social history:: Smoking status: Patient denies any tobacco usage or history of. ROS: 09:35 Constitutional: Negative for body aches, chills, fever, poor PO intake. cp 09:35 Eyes: Negative for injury, pain, redness, and discharge. cp 09:35 ENT: Negative for drainage from ear(s), ear pain, sore throat, difficulty swallowing, difficulty handling secretions. 09:35 Neck: Negative for stiffness. 09:35 Cardiovascular: Positive for chest pain, of the right lateral chest pain, Negative for edema, palpitations. 09:35 Respiratory: Negative for cough, shortness of breath, wheezing. 09:35 Abdomen/GI: Negative for abdominal pain, nausea, vomiting, and diarrhea. 09:35 Back: Negative for pain at rest, pain with movement. 09:35 MS/extremity: Positive for tenderness, of the right upper arm. cp 09:35 Neuro: Negative for altered mental status, dizziness, headache, loss of consciousness, cp syncope, weakness. 09:35 All other systems are negative. Exam: 09:40 Constitutional: The patient appears in no acute distress, alert, awake, cp non-diaphoretic, non-toxic, well developed, well nourished. 09:40 Head/Face: Normocephalic, atraumatic. cp 09:40 Eyes: Periorbital structures: appear normal, Pupils: equal, round, and reactive to light and accomodation, Extraocular movements: intact throughout, Sclera: no appreciated abnormality, Lids and lashes: appear normal, bilaterally. 09:40 Neck: C-spine: vertebral tenderness, is not appreciated, crepitus, is not appreciated, ROM/movement: is normal, is supple, without pain, no range of motions limitations. 09:40 Chest/axilla: Inspection: normal, Palpation: crepitus, is not appreciated, tenderness, that is moderate, of the right lower lateral chest wall. 09:40 Cardiovascular: Rate: normal, Rhythm: regular, Edema: is not appreciated, JVD: is not appreciated. 09:40 Respiratory: the patient does not display signs of respiratory distress, Respirations: normal, no use of accessory muscles, no retractions, labored breathing, is not present, Breath sounds: are clear throughout, no decreased breath sounds. 09:40 Abdomen/GI: Inspection: abdomen appears normal, Palpation: abdomen is soft and non-tender, in all quadrants. 09:40 Back: vertebral tenderness, is not appreciated. 09:40 Musculoskeletal/extremity: Extremities: grossly normal except: noted in the right upper arm: ecchymosis, tenderness, There is no evidence of decreased ROM, deformity, Pulses: noted to be 2+ in the right radial artery and left radial artery. 09:40 Neuro: Orientation: to person, place \T\ time. Mentation: is normal, Motor: moves all fours, strength is normal, Sensation: is normal. Vital Signs: 09:18 BP 141 / 55; Pulse 78; Resp 16; Pulse Ox 100% ; Weight 85.73 kg; Height 5 ft. 2 in. iw (157.48 cm); 12:24 BP 137 / 61; Pulse 75; Resp 16; Pulse Ox 100% ; bp 09:18 Body Mass Index 34.57 (85.73 kg, 157.48 cm) iw MDM: 09:31 Patient medically screened. cp 12:10 Data reviewed: vital signs, nurses notes, radiologic studies, CT scan, plain films, and cp as a result, I will discharge patient. 12:10 Differential diagnosis: closed head injury, contusion, fracture, multiple trauma. cp 08/03 09:31 Order name: XRAY Humerus RIGHT; Complete Time: 11:56 cp 08/03 11:59 Interpretation: Report reviewed. cp 08/03 09:31 Order name: CT Traumagram (Head C Spine CAP wo con); Complete Time: 11:29 cp 08/03 11:30 Interpretation: Report reviewed. cp 08/03 12:00 Order name: Leobardo; Complete Time: 12:24 cp Administered Medications: 09:57 Drug: Tylenol 1000 mg Route: PO; bp 12:24 Follow up: Response: No adverse reaction bp Disposition: 17:14 Co-signature as Attending Physician, Darius Kim MD I agree with the assessment and kdr plan of care. Disposition Summary: 08/03/21 12:10 Discharge Ordered Location: Home cp Problem: new cp Symptoms: have improved cp Condition: Stable cp Diagnosis - Contusion of right upper arm cp - Fall on same level from slipping, tripping and stumbling without subsequent cp striking against object - Chest pain, unspecified - right lower lateral from fall cp - Contusion of unspecified part of head, initial encounter cp Followup: cp - With: Private Physician - When: 2 - 3 days - Reason: Recheck today's complaints Discharge Instructions: - Discharge Summary Sheet cp - Rib Contusion cp - Facial or Scalp Contusion cp - Fall Prevention in the Home, Adult cp - Head Injury, Adult cp Forms: - Medication Reconciliation Form cp - Thank You Letter cp - Antibiotic Education cp - Prescription Opioid Use cp Prescriptions: - Ibuprofen 800 mg Oral Tablet - take 1 tablet by ORAL route every 8 hours As needed take with food; 30 tablet; cp Refills: 0, Product Selection Permitted Signatures: Dispatcher [employer] Darius Winslow MD MD kdr Sarika Garcia, Alex Del Rosario RN, PA PA cp Ramiro Davidson, RN RN bp
--- NOTE | 2021-08-03 12:11 | ER ---
Nurse's Notes [facility] Name: Kim Bean Age: 75 yrs Sex: Female : 1945 Arrival Date: 08/03/2021 Time: 09:10 Bed 14 Private MD: Foster Parry Diagnosis: Contusion of right upper arm;Fall on same level from slipping, tripping and stumbling without subsequent striking against object;Chest pain, unspecified-right lower lateral from fall;Contusion of unspecified part of head, initial encounter Presentation: 08/03 09:16 Chief complaint: Patient states: fell in her room early this morning , hit head on iw bedside table and fell onto right side , now has pain on right side of ribs, has a mild headache. is on plavix , denies LOC, happened around 240 am. Care prior to arrival: None. Mechanism of Injury: Fall Trauma event details: Injury occurred in the [facility]. 09:16 Acuity: KENNY 4 iw 09:16 Method Of Arrival: Ambulatory iw 09:18 Coronavirus screen: At this time, the client does not indicate any symptoms associated iw with coronavirus-19. Ebola Screen: Patient negative for fever greater than or equal to 101.5 degrees Fahrenheit, and additional compatible Ebola Virus Disease symptoms Patient denies exposure to infectious person. Patient denies travel to an Ebola-affected area in the 21 days before illness onset. No symptoms or risks identified at this time. Initial Sepsis Screen: Does the patient meet any 2 criteria? No. Patient's initial sepsis screen is negative. Does the patient have a suspected source of infection? No. Patient's initial sepsis screen is negative. Risk Assessment: Do you want to hurt yourself or someone else? Patient reports no desire to harm self or others. Onset of symptoms was August 03, 2021. Triage Assessment: 09:30 General: Appears in no apparent distress. uncomfortable, obese, Behavior is bp cooperative, appropriate for age, anxious. Pain: Complains of pain in head and right lateral posterior chest. EENT: No deficits noted. Neuro: Level of Consciousness is awake, alert, obeys commands, Oriented to Appropriate for age. Cardiovascular: No deficits noted. Respiratory: No deficits noted. GI: No signs and/or symptoms were reported involving the gastrointestinal system. : No signs and/or symptoms were reported regarding the genitourinary system. Derm: No deficits noted. Musculoskeletal: No deficits noted. Historical: - Allergies: 09:19 PENICILLINS; iw - PMHx: 09:19 acid reflux; Arthritis; Osteoporosis; iw - Immunization history:: Adult Immunizations. - Social history:: Smoking status: Patient denies any tobacco usage or history of. Screenin:30 Abuse screen: Denies threats or abuse. Denies injuries from another. Nutritional bp screening: No deficits noted. Tuberculosis screening: No symptoms or risk factors identified. Fall Risk None identified. Assessment: 09:30 General: SEE TRIAGE NOTE. bp 11:30 Reassessment: No changes from previously documented assessment. Patient and/or family bp updated on plan of care and expected duration. Pain level reassessed. 12:24 Reassessment: PT D/C HOME AMBULATORY, DX WITH RIB CONTUSION. bp Vital Signs: 09:18 BP 141 / 55; Pulse 78; Resp 16; Pulse Ox 100% ; Weight 85.73 kg; Height 5 ft. 2 in. iw (157.48 cm); 12:24 BP 137 / 61; Pulse 75; Resp 16; Pulse Ox 100% ; bp 09:18 Body Mass Index 34.57 (85.73 kg, 157.48 cm) iw ED Course: 09:10 Patient arrived in ED. am2 09:11 Foster Parry DO is Private Physician. am2 09:18 Triage completed. iw 09:19 Alex Diamond PA is PHCP. cp 09:19 Darius Kim MD is Attending Physician. cp 09:19 Arm band placed on. iw 09:24 Ramiro Davidson, FLORIAN is Primary Nurse. bp 09:55 CT Traumagram (Head C Spine CAP wo con) In Process Unspecified. EDMS 11:10 XRAY Humerus RIGHT In Process Unspecified. EDMS 11:30 Patient has correct armband on for positive identification. Bed in low position. Call bp light in reach. Side rails up X2. 12:26 No provider procedures requiring assistance completed. Patient did not have IV access bp during this emergency room visit. Sling applied to right arm. Administered Medications: 09:57 Drug: Tylenol 1000 mg Route: PO; bp 12:24 Follow up: Response: No adverse reaction bp Medication: 11:30 VIS not applicable for this client. bp Outcome: 12:10 Discharge ordered by . rhea 12:26 Discharged to home ambulatory. bp 12:26 Condition: stable 12:26 Discharge instructions given to patient, Instructed on discharge instructions, follow up and referral plans. medication usage, Demonstrated understanding of instructions, follow-up care, medications, Prescriptions given X 1. 12:26 Patient left the ED. bp Signatures: Dispatcher [employer] EDMS Sarika Garcia RN RN iw Alex Diamond, MALGORZATA PA Daina Mendoza [facility] Ramiro Davidson, RN RN bp
[2021-08-03 12:46] VITALS: O2SAT 100
[2021-08-03 12:48] VITALS: BP 137/61
== END 2021-08-03 12:26 | disposition home or self-care (01) ==
LOC: ER 09:07
DX: S00.83XA Contusion of other part of head, initial encounter (principal); S40.021A Contusion of right upper arm, initial encounter; R07.9 Chest pain, unspecified; W01.0XXA Fall on same level from slipping, tripping and stumbling without subsequent striking against object, initial encounter; Z88.0 Allergy status to penicillin
CPT/HCPCS: 70450; 71250; 72125; 99284

== ENCOUNTER 2023-10-13 06:29 | Emergency (ER) | payer OTHER ==
--- NOTE | 2023-10-13 07:45 | RAD REPORT ---
EXAM DESCRIPTION: CT - CTHCSPWOC - 10/13/2023 7:05 am CLINICAL HISTORY: Trauma, head and neck injury. TRAUMA COMPARISON: No comparisons TECHNIQUE: Axial 5 mm thick images of the head were obtained. Axial 2 mm thick images of the cervical spine were obtained with sagittal and coronal reconstruction images generated and reviewed. All CT scans are performed using dose optimization technique as appropriate and may include automated exposure control or mA/KV adjustment according to patient size. FINDINGS: CT HEAD WITHOUT CONTRAST: No acute hemorrhage, hydrocephalus or extra-axial collection is identified.Mild brain atrophy.No area s of brain edema or midline shift. The paranasal sinuses and mastoids are clear.The calvarium is intact. Mild atherosclerosis right vert ebral artery. CT CERVICAL SPINE WITHOUT CONTRAST: No fracture or subluxation.No prevertebral soft tissues swelling is identified. IMPRESSION: No acute intracranial or cervical spine findings.
--- NOTE | 2023-10-13 07:54 | RAD REPORT ---
EXAM DESCRIPTION: CT - CTFB CLINICAL HISTORY: TRAUMA COMPARISON: Head C Spine Mpr Wo Con dated 10/13/2023 TECHNIQUE: Axial 2 mm thick images of the face were obtained with sagittal and coronal reconstructio n images. All CT scans are performed using dose optimization technique as appropriate and may include automated exposure control or mA/KV adjustment according to patient size. FINDINGS: No acute facial bone fracture is seen.The mandible is intact. The globes and orbital contents are grossly unremarkable.Mild mucosal thickening of the paranasal sin uses. IMPRESSION: Negative for facial bone fracture.
--- NOTE | 2023-10-13 08:00 | RAD REPORT ---
EXAM DESCRIPTION: RAD - Shoulder Right 2 View - 10/13/2023 7:48 am CLINICAL HISTORY: PAIN COMPARISON: No comparisons FINDINGS: Mild AC joint and glenohumeral joint arthritic changes are present. No acute fracture or d islocation seen.
--- NOTE | 2023-10-13 08:00 | RAD REPORT ---
EXAM DESCRIPTION: RAD - Chest Single View - 10/13/2023 7:08 am CLINICAL HISTORY: TRAUMA Chest pain. COMPARISON: Chest Single View dated 09/26/2020; CHEST SINGLE VIEW dated 01/17/2013 FINDINGS: Portable technique limits examination quality. The lungs are grossly clear. The heart is normal in size. No displaced fractures. IMPRESSION: No acute intrathoracic process suspected.
--- NOTE | 2023-10-13 08:59 | ER ---
Nurse's Notes [facility] Name: Kim Bean Age: 77 yrs Sex: Female : 1945 Arrival Date: 10/13/2023 Time: 06:29 Bed 7 Private MD: Diagnosis: Unspecified injury of head, initial encounter;Contusion of right shoulder Presentation: 10/12 06:40 Chief complaint: Patient states: I fell while getting out of bed this morning around jw7 0615, and hit my head on my rocking chair. 06:40 Care prior to arrival: None. Mechanism of Injury: Fall out of bed an unknown distance. [facility] Trauma event details: Injury occurred in the [facility], Injury occurred: at home. Injury occurred: October 13, 2023 Injury occurred at: 06:15. 06:40 Acuity: KENNY 3 [facility] 06:40 Method Of Arrival: Wheelchair [facility] 06:40 Risk Assessment: Do you want to hurt yourself or someone else? Patient reports no [facility] desire to harm self or others. 06:40 Coronavirus screen: At this time, the client does not indicate any symptoms associated [facility] with coronavirus-19. Ebola Screen: No symptoms or risks identified at this time. Initial Sepsis Screen: Does the patient meet any 2 criteria? No. Patient's initial sepsis screen is negative. Does the patient have a suspected source of infection? No. Patient's initial sepsis screen is negative. Onset of symptoms was October 13, 2023 at 06:15. Triage Assessment: 06:40 General: Appears in no apparent distress. uncomfortable, Behavior is calm, cooperative, jw7 appropriate for age. Pain: Complains of pain in right temporal area Pain does not radiate. Pain currently is 9 out of 10 on a pain scale. Quality of pain is described as pressure, Pain began suddenly, Is continuous. 06:40 EENT: No deficits noted. No signs and/or symptoms were reported regarding the EENT jw system. Neuro: Level of Consciousness is awake, alert, obeys commands, Oriented to person, place, time, situation, Appropriate for age. Cardiovascular: Heart tones S1 S2 present Capillary refill < 3 seconds Patient's skin is warm and dry. Respiratory: Airway is patent Trachea midline Respiratory effort is even, unlabored, Respiratory pattern is regular, symmetrical. GI: Abdomen is round non-distended, Bowel sounds present X 4 quads. Abd is soft and non tender X 4 quads. : No deficits noted. No signs and/or symptoms were reported regarding the genitourinary system. Derm: Skin is healthy with good turgor, Skin is dry, Skin is normal, Skin temperature is warm Abrasion to right amish. Musculoskeletal: Circulation, motion, and sensation intact. Range of motion: intact in all extremities. Trauma Activation: Not Applicable Physician: ED Physician; Name: ; Notified At: ; Arrived At: Physician: General Surgeon; Name: ; Notified At: ; Arrived At: Physician: Radiology; Name: ; Notified At: ; Arrived At: Physician: Respiratory; Name: ; Notified At: ; Arrived At: Physician: Lab; Name: ; Notified At: ; Arrived At: Historical: - Allergies: 06:40 PENICILLINS; jw7 - Home Meds: 06:40 famotidine 20 mg oral tablet [Active]; omeprazole 20 mg Oral capsule,delayed release jw7 (e.c.) [Active]; bupropion HCl 150 mg Oral tablet, sustained-release 12 hr [Active]; clopidogrel 75 mg oral tablet [Active]; folic acid 1 mg Oral tablet [Active]; atorvastatin 40 mg oral tablet [Active]; alendronate 70 mg oral tablet [Active]; aspirin 81 mg Oral capsule [Active]; - PMHx: 06:40 acid reflux; Arthritis; Osteoporosis; jw7 - PSHx: 06:40 Total abdominal hysterectomy; Cholecystectomy; Sinus/Nose; jw7 - Immunization history: Last tetanus immunization: unknown. - Infectious Disease History:: Denies. - Social history:: Smoking status: Patient denies any tobacco usage or history of. Patient/guardian denies using alcohol, street drugs, IV drugs. - Family history:: not pertinent. - Hospitalizations: : No recent hospitalization is reported. Screenin:40 Abuse screen: Denies threats or abuse. Denies injuries from another. Nutritional jw7 screening: No deficits noted. Tuberculosis screening: No symptoms or risk factors identified. Fall risk. 06:40 [facility] ED Fall Risk Assessment (Adult) History of falling in the last 3 months, jw7 including since admission Yes- single mechanical fall (1 pt) Confusion or Disorientation No (0 pts) Intoxicated or Sedated No (0 pts) Impaired Gait Yes (1 pt) Mobility Assist Device Used No (0 pt) Altered Elimination No (0 pt) Score/Fall Risk Level 0 - 2 = Low Risk Oriented to surroundings, Maintained a safe environment, Educated pt \T\ family on fall prevention, incl call for assistance when getting out of bed. Primary Survey: 06:40 NO uncontrolled hemorrhage observed. A: The client is awake and alert. The airway is jw7 patent. The client is alert. Airway: patent, No supplemental oxygen in use on arrival. Breathing/Chest: Spontaneous respiratory effort, equal unlabored respirations, breath sounds clear bilaterally, regular pattern, symmetrical chest rise and fall. Respiratory effort: spontaneous, Breath sounds: clear, bilaterally. Respiratory pattern: regular, Chest inspection: symmetrical rise and fall of the chest. Circulation: No external hemorrhage present. Regular and strong central pulse, skin warm/dry/normal color. Hemorrhage: No external hemorrhage noted. Skin color: pink, Skin temperature: warm, Cardiac rhythm: sinus rhythm Heart tones present. Disability Pupils are equal, round, reactive to light and accommodation. Client is alert. Exposure/Environment: All clothing and personal items were removed. Forensic evidence collection is not deemed to be indicated at this time. Items placed in patient belonging bag. There is no evidence of uncontrolled external bleeding. No obvious injuries are noted at this time. A warming method has been applied: A warm blanket has been provided to the patient. 07:36 Reassessment Alertness and Airway: Awake and alert. The airway is patent. Breathing: kc6 Spontaneous respiratory effort, equal unlabored respirations, breath sounds clear bilaterally, regular pattern with symmetrical chest rise and fall. Circulation: No external hemorrhage noted. Regular and strong central pulse, skin warm/dry/normal color. Disability: Pupils Pupils are equal, round, reactive to light and accomodation. Alert. Assessment: 06:40 General: Appears in no apparent distress. uncomfortable, Behavior is calm, cooperative, jw7 appropriate for age. Pain: Complains of pain in right temporal area Pain does not radiate. Pain currently is 9 out of 10 on a pain scale. Quality of pain is described as pressure, Pain began suddenly, Is continuous. Neuro: Level of Consciousness is awake, alert, obeys commands, Oriented to person, place, time, situation, Appropriate for age. EENT: No deficits noted. No signs and/or symptoms were reported regarding the EENT system. Cardiovascular: Heart tones S1 S2 present Capillary refill < 3 seconds Patient's skin is warm and dry. Respiratory: Airway is patent Trachea midline Respiratory effort is even, unlabored, Respiratory pattern is regular, symmetrical. GI: Abdomen is round non-distended, Bowel sounds present X 4 quads. Abd is soft and non tender X 4 quads. : No deficits noted. No signs and/or symptoms were reported regarding the genitourinary system. Derm: Skin is intact, is healthy with good turgor, Skin is dry, Skin is normal, Skin temperature is warm. Musculoskeletal: Circulation, motion, and sensation intact. Range of motion: intact in all extremities. 08:16 Reassessment: Patient appears in no apparent distress at this time. No changes from kc6 previously documented assessment. Patient and/or family updated on plan of care and expected duration. Pain level reassessed. Patient is alert, oriented x 3, equal unlabored respirations, skin warm/dry/pink. Vital Signs: 06:40 BP 170 / 77; Pulse 78; Resp 17; Temp 98; Pulse Ox 100% ; Weight 84.37 kg; Height 4 ft. jw7 11 in. ; Pain 9/10; 07:36 BP 171 / 70; Pulse 68; Resp 16 S; Pulse Ox 100% on R/A; kc6 08:16 BP 162 / 90; Pulse 60; Resp 16 S; Pulse Ox 99% on R/A; kc6 06:40 Body Mass Index 37.57 (84.37 kg, 149.86 cm) jw7 06:40 Pain Scale: Adult jw7 [place] Coma Score: 06:40 Eye Response: spontaneous(4). Motor Response: obeys commands(6). Verbal Response: jw7 oriented(5). Total: 15. Trauma Score (Adult): 06:40 Eye Response: spontaneous(1); Verbal Response: oriented(1); Motor Response: obeys jw7 commands(2); Systolic BP: > 89 mm Hg(4); Respiratory Rate: 10 to 29 per min(4); [place] Score: 15; Trauma Score: 12 ED Course: 06:36 Patient arrived in ED. gm2 06:40 Patient has correct armband on for positive identification. Bed in low position. Call jw7 light in reach. Side rails up X2. O2 via RA. 06:40 Arm band placed on. jw7 06:40 Provided Education on: Use of Call Light. jw7 06:40 O2 via RA. jw7 06:50 Triage completed. jw7 07:00 Arvin Ryan MD is Attending Physician. rn 07:00 Report received from Jessika Montiel RN \T\ Karuna Ellington RN. kc6 07:00 Pulse ox on. NIBP on. Door closed. Noise minimized. Lights dimmed. Warm blanket given. kc6 Pillow given. 07:00 Thermoregulation: warm blanket given to patient. jw7 07:07 CT Head C Spine In Process Unspecified. EDMS 07:07 CT Facial Bones W/O Con In Process Unspecified. EDMS 07:10 CXR XRAY In Process Unspecified. EDMS 07:50 XRAY Shoulder RIGHT 2 view In Process Unspecified. EDMS 09:12 No provider procedures requiring assistance completed. Patient did not have IV access kc6 during this emergency room visit. Administered Medications: 09:11 Drug: Acetaminophen PO 650 mg PO once Route: PO; kc6 Medication: 09:12 VIS not applicable for this client. kc6 Outcome: 08:59 Discharge ordered by . rn 09:12 Discharged to home ambulatory, with family, kc6 09:12 Condition: good 09:12 Discharge instructions given to patient, Instructed on discharge instructions, follow up and referral plans. Demonstrated understanding of instructions, follow-up care, 09:12 Patient left the ED. kc6 Signatures: Dispatcher [employer] EDMS Arvin Ryan MD MD rn Waits, Jodi, RN RN jw7 Ivanna Vasquez RN RN kc6 Sharon Liu 2
--- NOTE | 2023-10-13 09:00 | EDPHYS ---
Physician Documentation [facility] Name: Kim Bean Age: 77 yrs Sex: Female : 1945 Arrival Date: 10/13/2023 Time: 06:29 Bed 7 Private MD: ED Physician Arvin Ryan HPI: 10/12 08:54 This 77 yrs old Female presents to ER via Wheelchair with complaints of Fall rn Injury, Headache. 08:54 Details of fall: The patient fell from an upright position. Onset: The symptoms/episode rn began/occurred just prior to arrival. Associated injuries: The patient sustained injury to the head. Severity of symptoms: At their worst the symptoms were mild, in the emergency department the symptoms are unchanged. The patient has not experienced similar symptoms in the past. The patient has not recently seen a physician. Patient reports getting out of bed, fell, hit head on rocking chair. No LOC. No vomiting. No seizure. Has actually been holding her Plavix since the weekend for an upcoming dental procedure. Reports mild pain to the right shoulder but no other injury or pain.. Historical: - Allergies: 06:40 PENICILLINS; jw7 - Home Meds: 06:40 famotidine 20 mg oral tablet [Active]; omeprazole 20 mg Oral capsule,delayed release jw7 (e.c.) [Active]; bupropion HCl 150 mg Oral tablet, sustained-release 12 hr [Active]; clopidogrel 75 mg oral tablet [Active]; folic acid 1 mg Oral tablet [Active]; atorvastatin 40 mg oral tablet [Active]; alendronate 70 mg oral tablet [Active]; aspirin 81 mg Oral capsule [Active]; - PMHx: 06:40 acid reflux; Arthritis; Osteoporosis; jw7 - PSHx: 06:40 Total abdominal hysterectomy; Cholecystectomy; Sinus/Nose; jw7 - Immunization history: Last tetanus immunization: unknown. - Infectious Disease History:: Denies. - Social history:: Smoking status: Patient denies any tobacco usage or history of. Patient/guardian denies using alcohol, street drugs, IV drugs. - Family history:: not pertinent. - Hospitalizations: : No recent hospitalization is reported. ROS: 08:54 Constitutional: Negative for fever, chills, and weight loss, Neck: Negative for injury, rn pain, and swelling, Cardiovascular: Negative for chest pain, palpitations, and edema, Respiratory: Negative for shortness of breath, cough, wheezing, and pleuritic chest pain, Abdomen/GI: Negative for abdominal pain, nausea, vomiting, diarrhea, and constipation, Back: Negative for injury and pain, MS/Extremity: Positive for right shoulder injury and pain Skin: Negative for injury, rash, and discoloration, Neuro: Positive for headache Exam: 08:54 Constitutional: This is a well developed, well nourished patient who is awake, alert, rn and in no acute distress. Head/Face: Normocephalic, small abrasion over the right forehead, no laceration or active bleeding Eyes: Pupils equal round and reactive to light, extra-ocular motions intact. Neck: No midline cervical tenderness Chest/axilla: Normal chest wall appearance and motion. Nontender with no deformity. Cardiovascular: Regular rate and rhythm. No pulse deficits. Respiratory: No increased work of breathing, no retractions or nasal flaring. Abdomen/GI: Soft, non-tender Back: No spinal tenderness. No costovertebral tenderness. Full range of motion. MS/ Extremity: Pulses equal, no cyanosis. Neurovascular intact. Full, normal range of motion. Equal circumference. Neuro: Awake and alert, GCS 15, oriented to person, place, time, and situation. Cranial nerves II-XII grossly intact. Motor strength 5/5 in all extremities. Sensory grossly intact. Vital Signs: 06:40 BP 170 / 77; Pulse 78; Resp 17; Temp 98; Pulse Ox 100% ; Weight 84.37 kg; Height 4 ft. jw7 11 in. ; Pain 9/10; 07:36 BP 171 / 70; Pulse 68; Resp 16 S; Pulse Ox 100% on R/A; kc6 08:16 BP 162 / 90; Pulse 60; Resp 16 S; Pulse Ox 99% on R/A; kc6 06:40 Body Mass Index 37.57 (84.37 kg, 149.86 cm) [facility] 06:40 Pain Scale: Adult jw7 [place] Coma Score: 06:40 Eye Response: spontaneous(4). Motor Response: obeys commands(6). Verbal Response: jw7 oriented(5). Total: 15. Trauma Score (Adult): 06:40 Eye Response: spontaneous(1); Verbal Response: oriented(1); Motor Response: obeys jw7 commands(2); Systolic BP: > 89 mm Hg(4); Respiratory Rate: 10 to 29 per min(4); [place] Score: 15; Trauma Score: 12 MDM: 06:41 Patient medically screened. sp3 08:58 Differential diagnosis: abrasion, closed head injury, contusion, fracture. Data rn reviewed: vital signs, nurses notes, radiologic studies, CT scan, plain films, and as a result, I will discharge patient. Counseling: I had a detailed discussion with the patient and/or guardian regarding the historical points, exam findings, and any diagnostic results supporting the discharge/admit diagnosis, lab results, radiology results, the need for outpatient follow up, to return to the emergency department if symptoms worsen or persist or if there are any questions or concerns that arise at home. Response to treatment: the patient's symptoms have mildly improved after treatment, and as a result, I will discharge patient. Special discussion: Based on the patient's history, exam and DX evaluation, there is no indication for emergent intervention or inpatient TX. It is understood by the patient/guardian that if the SXs persist or worsen they need to return immediately for re-evaluation. I discussed with the patient/guardian in detail that at this point there is no indication for admission to the hospital. It is understood, however, that if the symptoms persist or worsen the patient needs to return immediately for re-evaluation. 10/12 06:40 Order name: CT Head C Spine; Complete Time: 08: sp3 10/12 06:40 Order name: CT Facial Bones W/O Con; Complete Time: 08: sp3 10/12 06:40 Order name: CXR XRAY; Complete Time: 08: sp3 10/12 07:22 Order name: XRAY Shoulder RIGHT 2 view; Complete Time: 08:01 rn 10/12 06:40 Order name: NPO; Complete Time: 06:41 sp3 Administered Medications: 09:11 Drug: Acetaminophen PO 650 mg PO once Route: PO; kc6 Disposition Summary: 10/13/23 08:59 Discharge Ordered Notes: Location: Home rn Problem: new rn Symptoms: have improved rn Condition: Stable rn Diagnosis - Unspecified injury of head, initial encounter rn - Contusion of right shoulder rn Followup: rn - With: Private Physician - When: As needed - Reason: Recheck today's complaints, Re-evaluation by your physician Discharge Instructions: - Discharge Summary Sheet rn - Contusion rn - Head Injury, Adult rn Forms: - Medication Reconciliation Form rn - Antibiotic internet webmaster - Prescription Opioid Use rn - Patient Portal Instructions rn - Leadership Thank You Letter rn Signatures: Dispatcher [employer] EDMS Arvin Ryan MD MD rn Patel, Setul, MD MD sp3 Jessika Montiel RN RN jw7 Ivanna Vasquez RN RN kc6 Corrections: (The following items were deleted from the chart) 06:41 06:41 Facial Bones W/ MPR+CT.RAD.BRZ ordered. EDMS EDMS 06:41 06:41 Chest Single View+RAD.RAD.BRZ ordered. EDMS EDMS
[2023-10-13] MEDS ORDERED: ACETAMINOPHEN 325 MG TABLET ONE (09:05)
[2023-10-13 12:30] VITALS: TEMP 98
[2023-10-13 12:35] VITALS: BP 162/90; O2SAT 99
== END 2023-10-13 09:12 | disposition home or self-care (01) ==
LOC: ER 06:29
DX: S09.90XA Unspecified injury of head, initial encounter (principal); S40.011A Contusion of right shoulder, initial encounter; W18.30XA Fall on same level, unspecified, initial encounter
CPT/HCPCS: 70450; 70486; 71045; 72125; 76377